=== PATIENT | female | born 1970 | race Caucasian/White ===

== ENCOUNTER 2017-09-13 11:30 | Observation (INO) ==
[2017-09-13 12:09] LABS: Basophils % 0.4 %; Eosinophils # 0.1 K/mcL (0.0-0.6); Eosinophils % 1.9 %; Hematocrit 41.4 % (35.3-44.9); Hemoglobin 13.7 g/dL (11.5-15.4); Immature Granulocytes % 0.1 % (0-4); Lymphocytes # 3.1 K/mcL (0.6-4.6); Lymphocytes % 41.8 %; Mean Corpuscular HGB Conc 33.1 g/dL (31.6-35.5); Mean Corpuscular Hemoglobin 28.9 pg (28.0-33.3); Mean Corpuscular Volume 87.3 fL (83.0-100.0); Mean Platelet Volume 9.2 fL (9.4-12.4); Monocytes # 0.5 K/mcL (0.0-1.3); Monocytes % 6.4 %; Neutrophils # 3.7 K/mcL (1.6-8.9); Platelet Count 357 K/mcL (140-400); Red Blood Count 4.74 M/mcL (3.82-4.97); Red Cell Distribution Width 12.3 % (11.5-14.5); Segmented Neutrophils % 49.4 %
[2017-09-13] MEDS ORDERED: Promethazine 12.5 MG in 0.9 % Sodium Chloride 50 ML IVPB ONE (12:21)
[2017-09-13 12:28] LABS: Troponin I < 0.03 ng/mL (< 0.04)
[2017-09-13 12:30] LABS: BUN/Creatinine Ratio 9 (6-26); Blood Urea Nitrogen 9 mg/dL (6-20); Calcium 10.2 mg/dL (8.6-10.3); Carbon Dioxide 24 mEq/L (23-29); Chloride 105 mEq/L (98-107); Glucose 109 mg/dL (70-105); Osmolality,Calculated 287 (280-300); Potassium 4.1 mEq/L (3.5-5.1); Sodium 139 mEq/L (136-145); eGFR For African Americans > 60 (> 60); eGFR For Non-African Americans 57 (> 60)
[2017-09-13] MEDS ORDERED: *HR* Promethazine 25 MG/ML VIAL IVP ONE (12:40)
[2017-09-13] MEDS ORDERED: *HR* Nalbuphine 10 MG/ML AMPUL IV ONE ×2 (12:41→15:29)
--- NOTE | 2017-09-13 12:42 | Emergency Department Note ---
Disposition Clinical Impression: Abnormal ECG Chest pain Qualifiers: Chest pain type: unspecified Qualified Code(s): R07.9 - Chest pain, unspecified Headache Qualifiers: Headache type: unspecified Headache chronicity pattern: acute headache Intractability: not intractable Qualified Code(s): R51 - Headache Disposition: Admitted As Inpatient Condition: Fair Time of Disposition: 14:03 Chest Pain HPI - General Chief Complaint: ED Chest Pain Stated Complaint: CP Time Seen by Provider: 09/13/17 12:12 Source: patient, family Mode of arrival: ambulatory Limitations: no limitations Vital Signs Reviewed: Yes Nursing Notes Reviewed: Yes - History of Present Illness HPI Narrative: Patient has had intermittent nonexertional chest discomfort over the past several days. She also feels dizzy and nauseated. She has a migraine type headache. The patient states she was seen in the emergency department for similar symptoms last week and was discharged home. She was previously diagnosed with angina but no longer takes nitroglycerin after she no longer sees Dr. Farnsworth. Patient states her MONZON is identical to her previous migraine type MONZON's. Pt complaint: chest pain Onset (ago): day(s) Duration: intermittent Onset: during rest Pain Location: substernal Severity: severe Severity scale (1-10): 9 Quality: tightness, aching Pain Radiation: none Improves with: nothing Worsens with: other (expiration) Associated symptoms: Reports: nausea, dyspnea Treatments prior to arrival chest pain: none - Related Data On Oral Contraceptives: No Home Medications Medication Instructions Recorded Confirmed Acetaminophen/Butalbital/Caffe 1 tab PO Q4HR PRN 07/21/17 09/13/17 [Fioricet] Albuterol Neb [Proventil Neb] 2.5 mg IH TID 07/21/17 09/13/17 Albuterol Sulfate [Proair Hfa] 2 puff IH Q4H PRN 07/21/17 09/13/17 Citalopram Hydrobromide 40 mg PO DAILY 07/21/17 09/13/17 [Citalopram HBr] Cyclobenzaprine [Flexeril] 10 mg PO BID 07/21/17 09/13/17 Famotidine [Heartburn Prevention] 20 mg PO HS 07/21/17 09/13/17 Gabapentin [Neurontin] 300 mg PO TID 07/21/17 09/13/17 Promethazine [Phenergan] 25 mg PO DAILY PRN 07/21/17 09/13/17 Trazodone HCl 300 mg PO HS 07/21/17 09/13/17 Zolpidem [Ambien] 10 mg PO HS 07/21/17 09/13/17 amLODIPine [Norvasc] 5 mg PO DAILY 07/21/17 09/13/17 hydrOXYzine HCl [Hydroxyzine HCl] 50 mg PO Q6H 07/21/17 09/13/17 Carbidopa/Levodopa 1 tab PO DAILY 09/13/17 09/13/17 [Carbidopa-Levodopa 25-100 Tab] Diclofenac Potassium [Cambia] 50 mg PO DAILY PRN 09/13/17 09/13/17 Lubiprostone [Amitiza] 24 mcg PO DAILY 09/13/17 09/13/17 OxyCODONE/APAP 10/325 [Percocet 1 tab PO Q6HR PRN 09/13/17 09/13/17 10/325 MG] Sorbitol Soln [Sorbitol] 30 ml PO DAILY 09/13/17 09/13/17 Allergies Allergy/AdvReac Type Severity Reaction Status Date / Time aspirin Allergy See Verified 09/13/17 14:34 Comments ketorolac [From Toradol] Allergy Anxiety Verified 09/13/17 14:34 Latex, Natural Rubber Allergy Anaphylaxis Verified 09/13/17 14:34 metoclopramide [From Reglan] Allergy Anxiety Verified 09/13/17 14:34 prochlorperazine Allergy Anxiety Verified 09/13/17 14:34 [From Compazine] propoxyphene Allergy Anxiety Verified 09/13/17 14:34 [From Darvocet-N] sumatriptan [From Imitrex] Allergy See Verified 09/13/17 14:34 Comments acetaminophen [From Vicodin] AdvReac Headache Verified 09/13/17 14:34 diphenhydramine AdvReac Anxiety Verified 09/13/17 14:34 [From Benadryl] hydrocodone [From Vicodin] AdvReac Headache Verified 09/13/17 14:34 any blood thinners AdvReac unable to Uncoded 09/13/17 14:34 have due to history All systems ED: reviewed and negative except as stated. Constitutional: Reports: as per HPI Eyes: Reports: as per HPI ENT ED: Reports: as per HPI Cardiovascular: Reports: chest pain, dyspnea on exertion Respiratory: Reports: as per HPI Gastrointestinal: Reports: nausea Genitourinary: Reports: as per HPI Musculoskeletal: Reports: as per HPI Integumentary: Reports: as per HPI Neurological: Reports: headache Psychiatric: Reports: as per HPI Endocrine: Reports: as per HPI Hematological/Lymphatic: Reports: as per HPI Allergic/Immunologic: Reports: as per HPI Chest Pain PMH - Past Medical History Medical history: Reports: aortic aneurysm, fibromyalgia, hypertension, migraine , seizures, TIA, other Surgical history: Reports: hysterectomy, other Psychiatric history: Reports: anxiety HAIR DRESSER history: Reports: no HAIR DRESSER history - Social History Smoking Status: Never smoker Alcohol use: Reports: none Drug use: Reports: none Physical Exam - General Limitations: no limitations General appearance: alert, in no apparent distress, anxious - Head Head exam: atraumatic - Eye Eye exam: Present: normal appearance, PERRL - ENT ENT exam: normal exam - Neck Neck exam: Present: normal inspection, full ROM - Chest Chest inspection: Present: normal inspection, symmetric chest wall rise - Respiratory Respiratory exam: Present: normal lung sounds bilaterally - Cardiovascular Cardiovascular exam: Present: regular rate, normal rhythm, normal heart sounds - Rectal Exam Rectal exam: Present: deferred - Extremities Exam Extremities exam: Present: normal inspection - Neurological Exam Neurological exam: Present: alert, oriented X3, CN II-XII intact - Psychiatric Psychiatric exam: Present: normal affect, normal mood, anxious - Skin Skin exam: Present: warm, dry, intact Course Course Narrative: Patient presents with intermittent chest discomfort past several days. She states she has a history of angina but does not currently take nitroglycerin. She has an allergy to aspirin. Workup including ECG and labs with attention to troponin initiated. She also states she has a migraine type headache. Even though she has a history of cerebral aneurysms she states that this headache is identical to previous. She requests Dilaudid and Phenergan as effective abortive medications. She does have a history of cerebral aneurysms but the patient's symptoms are not consistent with subarachnoid hemorrhage-no thunderclap onset, no neurologic symptoms. Subjectively identical to previous migraines - Reevaluation(s) Reevaluation #1: Patient resting coupling. Test results discussed. I will request admission to the medicine service Vital Signs Temperature 97.9 F 09/13/17 11:31 Pulse Rate 87 09/13/17 11:31 Respiratory Rate 16 09/13/17 11:31 Blood Pressure 115/76 09/13/17 11:31 O2 Sat by Pulse Oximetry 100 09/13/17 11:31 Temperature 97.9 F 09/13/17 11:31 Pulse Rate 88 09/13/17 14:33 Respiratory Rate 20 09/13/17 14:33 Blood Pressure 104/81 09/13/17 14:33 O2 Sat by Pulse Oximetry 92 09/13/17 14:33 Oxygen Delivery Oxygen Delivery Nasal Cannula Chest Pain - Medical Records Medical records reviewed: Yes I reviewed the patient's medical records. - Lab Data Lab results reviewed: Yes I reviewed the patient's lab results. Result diagrams: 09/13/17 12:01 09/13/17 12:01 Lab Results 09/13/17 09/13/17 09/13/17 Range/Units 12:01 12:01 12:52 WBC 7.5 (4.3-11.1) K/mcL RBC 4.74 (3.82-4.97) M/mcL Hgb 13.7 (11.5-15.4) g/dL Hct 41.4 (35.3-44.9) % MCV 87.3 (83.0-100.0) fL MCH 28.9 (28.0-33.3) pg MCHC 33.1 (31.6-35.5) g/dL RDW 12.3 (11.5-14.5) % Plt Count 357 (140-400) K/mcL MPV 9.2 L (9.4-12.4) fL Immature Gran % 0.1 (0-4) % Seg Neutrophils % 49.4 % Lymphocytes % 41.8 % Monocytes % 6.4 % Eosinophils % 1.9 % Basophils % 0.4 % Neutrophils # 3.7 (1.6-8.9) K/mcL Lymphocytes # 3.1 (0.6-4.6) K/mcL Monocytes # 0.5 (0.0-1.3) K/mcL Eosinophils # 0.1 (0.0-0.6) K/mcL Basophils # 0.0 (0.0-0.2) K/mcL PT 11.4 (9.4-12.1) Seconds INR 1.1 D-Dimer < 215 (0-500) ng/mLFEU Sodium 139 (136-145) mEq/L Potassium 4.1 (3.5-5.1) mEq/L Chloride 105 (98-107) mEq/L Carbon Dioxide 24 (23-29) mEq/L BUN 9 (6-20) mg/dL Creatinine 1.03 (0.60-1.20) mg/dL Est GFR ( Amer) > 60 (> 60) Est GFR (Non-Af Amer) 57 L (> 60) BUN/Creatinine Ratio 9 (6-26) Glucose 109 H (70-105) mg/dL Calculated Osmolality 287 (280-300) Calcium 10.2 (8.6-10.3) mg/dL Troponin I < 0.03 (< 0.04) ng/mL - Radiology Data Radiology results reviewed: Yes I reviewed the patient's radiology results. - EKG Data EKG attestation: Yes I reviewed and interpreted this EKG. EKG results narrative: Normal sinus rhythm rate 85 OH 141 QRS 94 QT/QTC 386/428. ST segment depression in the inferior leads. Inverted T waves in leads V1 through V6. Study compared to previous dated 09/01/17 Repeat study timed at 15:53 shows normal sinus rhythm with left ventricular hypertrophy rate 99 OH 138 QRS 91 QT/QTC 378/434. No acute ST segment elevation
[2017-09-13 13:11] LABS: INR 1.1; Prothrombin Time 11.4 Seconds (9.4-12.1)
[2017-09-13 13:16] LABS: D-Dimer < 215 ng/mLFEU (0-500)
[2017-09-13] MEDS ORDERED: Naloxone 0.4 MG/ML INJ IVP PRN (18:18)
--- NOTE | 2017-09-13 18:35 | Internal Med History&Physical ---
Date of Encounter: 09/13/17 Time of Encounter: 18:28 Internal Medicine - H&P: HPI Chief complaint: Chest pain Admitted From: Home Plans for Post Hospital Care: Home History of present illness: Ms. Villarreal is a 47 year old female with history of severe anxiety, fibromyalgia, hypertension, migraine, questionable stroke, questionable seizure on gabapentin but no seizure for last 7 year under care of neurologist, status post brain aneurysm surgery presented to ER with complaint of intermittent nonexertional left-sided chest discomfort or last several days associated with diaphoresis, nausea and lightheadedness. Yesterday it got worse rated 7 x 10 therefore decided to come to ER. She talked to her doctor about ongoing chest pain who is scheduled for a stress test OPD basis this week but ended up in [place] ER due to severity of the pain. Patient had almost same pain several years back and has been under care of energy risk management analyst Dr. Farnsworth but does not remember having any cardiac workup in her chest pain got relieved with nitroglycerin. In ER troponin negative but ST depression and T-wave inversion in inferior lateral lead. She was seen in the ER last week for the same problem and got discharge to home with the advice outpatient workup. Patient states that she was told to avoid anticoagulant due to risk of possible brain leak secondary to underlying aneurysm Patient denies fever, chills, nausea, vomiting, new change in headache but she had chronic migraine, shortness of breath, palpitation, abdominal pain, urinary or bowel complaint Past Med Surg Social Fam HX - Past Medical History Medical history: aortic aneurysm, fibromyalgia, hypertension, migraine, seizures , TIA, other Psychiatric history: anxiety - Past Surgical History Surgical History: hysterectomy, other - Social History Smoking Status: Never smoker Smokeless Tobacco Status: No Alcohol use: none Drug use: none Internal Medicine - H&P: Meds Acetaminophen/Butalbital/Caffe [Fioricet] 1 tab PO Q4HR PRN 07/21/17 [History] Albuterol Neb [Proventil Neb] 2.5 mg IH TID 07/21/17 [History] Albuterol Sulfate [Proair Hfa] 2 puff IH Q4H PRN 07/21/17 [History] Citalopram Hydrobromide [Citalopram HBr] 40 mg PO DAILY 07/21/17 [History] Cyclobenzaprine [Flexeril] 10 mg PO BID 07/21/17 [History] Famotidine [Heartburn Prevention] 20 mg PO HS 07/21/17 [History] Gabapentin [Neurontin] 300 mg PO TID 07/21/17 [History] Promethazine [Phenergan] 25 mg PO DAILY PRN 07/21/17 [History] Trazodone HCl 300 mg PO HS 07/21/17 [History] Zolpidem [Ambien] 10 mg PO HS 07/21/17 [History] amLODIPine [Norvasc] 5 mg PO DAILY 07/21/17 [History] hydrOXYzine HCl [Hydroxyzine HCl] 50 mg PO Q6H 07/21/17 [History] Carbidopa/Levodopa [Carbidopa-Levodopa 25-100 Tab] 1 tab PO DAILY 09/13/17 [ History] Diclofenac Potassium [Cambia] 50 mg PO DAILY PRN 09/13/17 [History] Lubiprostone [Amitiza] 24 mcg PO DAILY 09/13/17 [History] OxyCODONE/APAP 10/325 [Percocet 10/325 MG] 1 tab PO Q6HR PRN 09/13/17 [History] Sorbitol Soln [Sorbitol] 30 ml PO DAILY 09/13/17 [History] 3 Allergy/AdvReac Type Severity Reaction Status Date / Time aspirin Allergy See Verified 09/13/17 14:34 Comments ketorolac [From Toradol] Allergy Anxiety Verified 09/13/17 14:34 Latex, Natural Rubber Allergy Anaphylaxis Verified 09/13/17 14:34 metoclopramide [From Reglan] Allergy Anxiety Verified 09/13/17 14:34 prochlorperazine Allergy Anxiety Verified 09/13/17 14:34 [From Compazine] propoxyphene Allergy Anxiety Verified 09/13/17 14:34 [From Darvocet-N] sumatriptan [From Imitrex] Allergy See Verified 09/13/17 14:34 Comments acetaminophen [From Vicodin] AdvReac Headache Verified 09/13/17 14:34 diphenhydramine AdvReac Anxiety Verified 09/13/17 14:34 [From Benadryl] hydrocodone [From Vicodin] AdvReac Headache Verified 09/13/17 14:34 any blood thinners AdvReac unable to Uncoded 09/13/17 14:34 have due to history All Systems PM: as documented above in the HPI. - Constitutional Vitals: Temp Pulse Resp BP Pulse Ox 98.4 F 89 14 121/82 93 09/13/17 16:11 09/13/17 16:11 09/13/17 16:11 09/13/17 16:11 09/13/17 16:11 Exam: General appearance: No acute distress, A&O X 3 Head exam: Atraumatic Eye exam: EOMI, PERRLA ENT exam: Moist oral mucosa Neck nontender, supple Respiratory exam: Clear to auscultation bilaterally Cardiovascular exam: Regular rate and rhythm, no systolic murmur Abdominal exam: Soft, nontender, nondistended, positive bowel sounds Extremities exam: No calf tenderness, no pedal edema Present: Skin-no rash, warm, dry, intact Neurological exam: Alert, awake, oriented 3, CN II-XII intact, no focal deficits. No facial droop. Normal speech. Normal gait. Motor 5 x 5 in all 4 extremities Internal Med - H&P Results - Labs CBC & Chem 7: 09/13/17 12:01 09/13/17 12:01 - Assessment and plan (1) Chest pain Current Visit: Yes Status: Acute Assessment and plan: Rule out ACS. Intermittent presentation. Better chest pain. Telemetry bed serial troponin. Echocardiogram and a stress tests after discussing with energy risk management analyst. Will avoid anticoagulant at this time based on history of brain aneurysm and possible risk of leak. Fasting lipid profile ordered, statin. Qualifiers: Chest pain type: unspecified Qualified Code(s): R07.9 - Chest pain, unspecified (2) Hypertension Current Visit: Yes Status: Chronic Assessment and plan: Close monitoring. Continue home medicine Qualifiers: Hypertension type: essential hypertension Qualified Code(s): I10 - Essential (primary) hypertension (3) Chronic migraine Current Visit: Yes Status: Chronic Assessment and plan: Stable. Continue home medicine. Patient follow neurologist and has appointment next week on OPD basis (4) Anxiety Current Visit: Yes Status: Chronic Assessment and plan: Stable. Continue home medicine (5) DVT prophylaxis Current Visit: Yes Status: Acute Assessment and plan: SCDs. - Time Spent With Patient Total time spent is greater than 50% in coordination of care (as documented) at patient's floor/unit and/or counseling patient: 25 - 35 minutes
[2017-09-13] MEDS: hydrOXYzine pamoate 25 MG CAPSULE PO SCH (18:40)
[2017-09-13] MEDS: *HR* OxyCODONE/APAP 10/325 TABLET PO PRN (18:45)
[2017-09-13] MEDS ORDERED: Nitroglycerin 0.4 MG TAB.SUBL SL PRN (18:49)
[2017-09-13] MEDS: Albuterol 2.5 MG/3 ML NEBULIZER IH SCH (21:24)
[2017-09-13] MEDS: traZODone 50 MG TABLET PO SCH (21:57)
[2017-09-13] MEDS: Famotidine 20 MG TABLET PO SCH (21:57)
[2017-09-13] MEDS: Gabapentin 300 MG CAPSULE PO SCH (21:57)
[2017-09-14] MEDS: *HR* OxyCODONE/APAP 10/325 TABLET PO PRN ×4 (00:35→20:39)
[2017-09-14] MEDS: hydrOXYzine pamoate 25 MG CAPSULE PO SCH ×4 (00:35→20:38)
[2017-09-14 02:10] LABS: Basophils % 0.3 %; Eosinophils # 0.2 K/mcL (0.0-0.6); Eosinophils % 2.4 %; Hematocrit 38.2 % (35.3-44.9); Hemoglobin 12.3 g/dL (11.5-15.4); Immature Granulocytes % 0.3 % (0-4); Lymphocytes # 2.7 K/mcL (0.6-4.6); Lymphocytes % 42.4 %; Mean Corpuscular HGB Conc 32.2 g/dL (31.6-35.5); Mean Corpuscular Hemoglobin 29.1 pg (28.0-33.3); Mean Corpuscular Volume 90.3 fL (83.0-100.0); Mean Platelet Volume 10.4 fL (9.4-12.4); Monocytes # 0.6 K/mcL (0.0-1.3); Neutrophils # 2.8 K/mcL (1.6-8.9); Platelet Count 268 K/mcL (140-400); Red Blood Count 4.23 M/mcL (3.82-4.97); Red Cell Distribution Width 12.3 % (11.5-14.5); Segmented Neutrophils % 44.6 %
[2017-09-14 02:34] LABS: BUN/Creatinine Ratio 14 (6-26); Blood Urea Nitrogen 12 mg/dL (6-20); Calcium 9.2 mg/dL (8.6-10.3); Carbon Dioxide 26 mEq/L (23-29); Chloride 105 mEq/L (98-107); Cholesterol 252 mg/dL (< 200); Glucose 109 mg/dL (70-105); HDL Cholesterol 50 mg/dL (40-59); LDL Cholesterol,Calculated 183 mg/dL (0-99); Osmolality,Calculated 288 (280-300); Potassium 3.6 mEq/L (3.5-5.1); Sodium 139 mEq/L (136-145); Triglycerides 94 mg/dL (< 150); eGFR For African Americans > 60 (> 60); eGFR For Non-African Americans > 60 (> 60)
[2017-09-14] MEDS ORDERED: Regadenoson 0.4 MG/5 ML SYRINGE IVP ONE (05:29)
[2017-09-14] MEDS ORDERED: *HR* Nalbuphine 20 MG/ML AMPUL IVP ONE (09:42)
[2017-09-14] MEDS ORDERED: *HR* Promethazine 25 MG/ML VIAL IVP ONE (09:43)
[2017-09-14] MEDS: Albuterol 2.5 MG/3 ML NEBULIZER IH SCH ×3 (10:32→21:10)
[2017-09-14] MEDS ORDERED: *HR* Nalbuphine 10 MG/ML AMPUL IVP ONE (11:15)
[2017-09-14] MEDS: Gabapentin 300 MG CAPSULE PO SCH ×3 (11:17→20:38)
[2017-09-14] MEDS: Carbidopa/Levodopa 25/100 TABLET PO SCH (11:17)
[2017-09-14] MEDS: (Lubiprostone [Amitiza] 24 MCG) PO SCH (11:18)
[2017-09-14] MEDS: amLODIPine 5 MG TABLET PO SCH (11:18)
--- NOTE | 2017-09-14 12:22 | Internal Med Progress Note ---
Date of Encounter: 09/14/17 Time of Encounter: 12:18 - Assessment and plan (1) Chest pain Current Visit: Yes Status: Acute Assessment and plan: She presented with intermittent left-sided chest pain. ACS rule out protocol and admitted. No events on telemetry noted. Echocardiogram unremarkable, with preserved LVEF. Stress test completed today found to be negative for ischemia. Troponins negative 3. However, ECG did note some possible T-wave inversions in inferior leads. Reporting chest pain now 2/10. Continue to monitor closely. Continue cardiac medications. Patient not a good candidate for anticoagulation due to history of brain aneurysm and possible risk of bleeding. Hemodynamically stable. Cardiology following Qualifiers: Chest pain type: unspecified Qualified Code(s): R07.9 - Chest pain, unspecified (2) Chronic migraine Current Visit: Yes Status: Chronic Assessment and plan: Having active migraine now, pain rated 10/10. Reporting oxycodone is not helping. Home medications being continued and is also not helping. Patient noted that she follow neurologist and has appointment next week on an outpatient basis. She has been encouraged to maintain this appointment. CT angiogram of the neck and angiography of brain, stable compared to previous exams, no flow limiting stenosis noted. Due to active migraine with pain 10/10, phonophobia and photophobia I will give the patient a one-time dose of Nubain and Phenergan Continue to closely monitor, monitor for changes in neurologic status (3) Hypertension Current Visit: Yes Status: Chronic Assessment and plan: History of hypertension, blood pressures remained stable throughout the stay thus far, Close monitoring. Continue home medicine Qualifiers: Hypertension type: essential hypertension Qualified Code(s): I10 - Essential (primary) hypertension (4) Anxiety Current Visit: Yes Status: Chronic Assessment and plan: Stable at this time. Continue home medicine (5) DVT prophylaxis Current Visit: Yes Status: Acute Assessment and plan: Continue SCDs and early ambulation - Time Spent With Patient Total time spent is greater than 50% in coordination of care (as documented) at patient's floor/unit and/or counseling patient: 25 - 35 minutes - Subjective Interval history: Patient presented with intermittent nonexertional left-sided chest discomfort over the last several days with diaphoresis nausea and lightheadedness. Additionally was found to a migraine headache. Patient reports that chest pain has significantly improved since admission, now 2/10. Patient underwent nuclear stress this morning, chest pain at start of stress test 06/11 and remained 2/10 throughout. Nuclear stress negative for ischemia. She is continuing to endorse migraine headache and does have a history of this. Takes chronic migraine medication at home and reports that when there very severe she returns to the ED for IV pain medication. - Constitutional Vitals: Temp Pulse Resp BP Pulse Ox 97.5 F L 77 14 120/77 95 09/14/17 11:21 09/14/17 11:21 09/14/17 11:21 09/14/17 11:21 09/14/17 11:21 General appearance: Present: cooperative, A&O X 3, no acute distress, answers questions appropriately - Head Head exam: Present: atraumatic, normocephalic - Eye Eye exam: Present: PERRL, conjuntiva pink, sclera anicteric Pupils: Present: PERRL - Neck Neck exam general surgery: Present: supple, trachea midline. Absent: lymphadenopathy - Respiratory Respiratory exam: Present: CTAB. Absent: accessory muscle use, rales, rhonchi, wheezes - Cardiovascular Cardiovascular exam: Present: RRR, +S1, +S2. Absent: diastolic murmur, gallop, rubs, systolic murmur - GI/Abdominal GI/Abdominal exam: Present: normal bowel sounds, soft, no peritoneal signs. Absent: distended, tenderness - Extremities Exam Extremities exam: Present: warm, radial pulses palpable and symmetrical. Absent : calf tenderness, cyanotic, pedal edema - Neurological Exam Neurological exam: Present: CN II-XII intact, oriented X3, no focal deficits. Absent: pronater drift, facial droop, speech deficit - Skin Skin exam: Present: dry, intact Internal Medicine: Result - Labs CBC & Chem 7: 09/14/17 01:01 09/14/17 01:01 Labs: Short CBC 09/14/17 Range/Units 01:01 WBC 6.3 (4.3-11.1) K/mcL Hgb 12.3 (11.5-15.4) g/dL Hct 38.2 (35.3-44.9) % Plt Count 268 (140-400) K/mcL Neutrophils # 2.8 (1.6-8.9) K/mcL BMP 09/14/17 01:01 Sodium 139 Potassium 3.6 Chloride 105 Carbon Dioxide 26 BUN 12 Creatinine 0.87 Glucose 109 H Calcium 9.2 Cardiac Enzymes 09/13/17 09/14/17 09/14/17 Range/Units 18:33 01:01 06:49 Troponin I < 0.03 < 0.03 < 0.03 (< 0.04) ng/mL - ABG Interpretation ABG results: PT/INR, D-dimer PT 11.4 Seconds (9.4-12.1) 09/13/17 12:52 D-Dimer < 215 ng/mLFEU (0-500) 09/13/17 12:52 - Impressions Impressions Echocardiogram 09/14/17 18:27 Impressions: LVEF 65%. Indeterminate diastolic function. Normal right ventricular structure and function. Mild mitral regurgitation. No pulmonary hypertension. Left Ventricular Wall Motion: Rest Echo Findings All wall segments showed normal motion. Findings: Study Quality * Technically adequate exam. ECG Findings * Normal sinus rhythm. Left Ventricle * LVEF 65%. * Normal LV chamber size, wall thickness and function. * Indeterminate diastolic function. Right Ventricle * Normal right ventricular structure and function. Left Atrium * Normal left atrial size. Right Atrium * Normal right atrial size. Mitral Valve * Normal mitral valve structure. * No mitral stenosis. * Mild mitral regurgitation. Aortic Valve * No aortic regurgitation. * Trileaflet aortic valve. * No aortic stenosis. Tricuspid Valve * Tricuspid valve not well visualized. * Trace tricuspid regurgitation. * Estimated RA pressure is 3 mmHg. * Estimated RVSP is 22 mmHg. * No pulmonary hypertension. Pulmonic Valve * Pulmonic valve is not well visualized. * No pulmonic stenosis. * No pulmonic regurgitation. Pulmonary Artery * Pulmonary artery not well visualized. Aorta * Normally sized aortic root. Pericardium * There is no pericardial effusion present. Interatrial Septum * No evidence of PFO by color Doppler. IVC * Normal IVC dimensions and inspiratory collapse. Consult Discharge Plan - Plan Referrals: Baltazar Craig DO [Primary Care Provider] - 10/11/17 1:30 pm Dania Alamo [Partnered Physician] - 10/05/17 3:30 pm
[2017-09-14] MEDS: SORBITOL PO SCH (14:24)
--- NOTE | 2017-09-14 16:16 | Electrocardiograph Report ---
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
--- NOTE | 2017-09-14 16:26 | Electrocardiograph Report ---
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
[2017-09-14] MEDS: Acetaminophen/Butalbital/CaffeineTABLET PO PRN (16:51)
[2017-09-14] MEDS: Famotidine 20 MG TABLET PO SCH (20:38)
[2017-09-14] MEDS: traZODone 50 MG TABLET PO SCH (20:39)
[2017-09-15] MEDS: hydrOXYzine pamoate 25 MG CAPSULE PO SCH ×4 (01:30→17:40)
[2017-09-15] MEDS: *HR* OxyCODONE/APAP 10/325 TABLET PO PRN ×3 (03:17→19:35)
[2017-09-15 04:31] LABS: Basophils % 0.3 %; Eosinophils # 0.2 K/mcL (0.0-0.6); Eosinophils % 2.8 %; Hematocrit 34.3 % (35.3-44.9); Hemoglobin 10.9 g/dL (11.5-15.4); Immature Granulocytes % 0.3 % (0-4); Lymphocytes # 2.3 K/mcL (0.6-4.6); Lymphocytes % 40.4 %; Mean Corpuscular HGB Conc 31.8 g/dL (31.6-35.5); Mean Corpuscular Hemoglobin 28.9 pg (28.0-33.3); Mean Platelet Volume 9.5 fL (9.4-12.4); Monocytes # 0.5 K/mcL (0.0-1.3); Monocytes % 8.8 %; Neutrophils # 2.7 K/mcL (1.6-8.9); Platelet Count 271 K/mcL (140-400); Red Blood Count 3.77 M/mcL (3.82-4.97); Red Cell Distribution Width 12.2 % (11.5-14.5); Segmented Neutrophils % 47.4 %
[2017-09-15 04:43] LABS: BUN/Creatinine Ratio 12 (6-26); Blood Urea Nitrogen 10 mg/dL (6-20); Calcium 9.1 mg/dL (8.6-10.3); Carbon Dioxide 29 mEq/L (23-29); Chloride 105 mEq/L (98-107); Glucose 100 mg/dL (70-105); Osmolality,Calculated 287 (280-300); Potassium 3.6 mEq/L (3.5-5.1); Sodium 139 mEq/L (136-145); eGFR For African Americans > 60 (> 60); eGFR For Non-African Americans > 60 (> 60)
[2017-09-15] MEDS: Albuterol 2.5 MG/3 ML NEBULIZER IH SCH ×3 (07:50→20:15)
[2017-09-15] MEDS: Acetaminophen/Butalbital/CaffeineTABLET PO PRN (08:33)
[2017-09-15] MEDS: SORBITOL PO SCH (08:34)
[2017-09-15] MEDS: amLODIPine 5 MG TABLET PO SCH (08:34)
[2017-09-15] MEDS: Carbidopa/Levodopa 25/100 TABLET PO SCH (08:34)
[2017-09-15] MEDS: Gabapentin 300 MG CAPSULE PO SCH ×3 (08:34→21:04)
[2017-09-15] MEDS: (Lubiprostone [Amitiza] 24 MCG) PO SCH (08:34)
--- NOTE | 2017-09-15 12:32 | Internal Med Progress Note ---
Date of Encounter: 09/15/17 Time of Encounter: 09:15 - Assessment and plan (1) Chest pain Current Visit: Yes Status: Acute Assessment and plan: She presented with intermittent left-sided chest pain. ACS rule out protocol and admitted. Continues have no events on telemetry, Echocardiogram unremarkable, with preserved LVEF. Stress test completed today found to be negative for ischemia however, she is continuing to have chest pain. Troponins negative 3. However, ECG did note some possible T-wave changes and anterior lateral leads. Continue to monitor closely. Continue cardiac medications. Patient not a good candidate for anticoagulation due to history of brain aneurysm and possible risk of slow bleeding per the patient. The patient reports that she was informed not to take anticoagulation or antiplatelets because there is a third aneurysm was unable to be coiled or clipped. She was told there is a risk for "slow brain leak ". Cardiology following; recommendations if patient at risk for brain bleed due to prior aneurysm with coiling and clipping that she would not be a candidate for LHC however, the patient is low risk a diagnostic LHC would be beneficial due to ongoing chest pain Obtain old medical records from the [facility] and the [facility] in regards to aneurysm, clipping and coiling procedure as well as most recent imaging. Neurology consulted, will see in consultation Qualifiers: Chest pain type: unspecified Qualified Code(s): R07.9 - Chest pain, unspecified (2) Chronic migraine Current Visit: Yes Status: Chronic Assessment and plan: History of chronic migraines, migraines coming and going intermittently throughout the day. Continue home migraine medication, patient refusing to take abortive migraine therapy and/or migraine cocktail. Patient noted that she follow neurologist and has appointment next week on an outpatient basis. She has been encouraged to maintain this appointment. CT angiogram of the neck and angiography of brain, stable compared to previous exams, no flow limiting stenosis noted. Continue to closely monitor, monitor for changes in neurologic status (3) Hypertension Current Visit: Yes Status: Chronic Assessment and plan: BP stable, Close monitoring. Continue home medicine Qualifiers: Hypertension type: essential hypertension Qualified Code(s): I10 - Essential (primary) hypertension (4) Anxiety Current Visit: Yes Status: Chronic Assessment and plan: Continues to appear anxious, resume anxiolytics (5) DVT prophylaxis Current Visit: Yes Status: Acute Assessment and plan: EPCD's - Time Spent With Patient Total time spent is greater than 50% in coordination of care (as documented) at patient's floor/unit and/or counseling patient: Greater than 35 minutes - Subjective Interval history: Patient presented with intermittent nonexertional left-sided chest discomfort over the last several days with diaphoresis nausea and lightheadedness. Additionally was found to a migraine headache. Patient reports that chest pain has significantly improved since admission, now 06/11. Patient underwent nuclear stress this morning, chest pain at start of stress test 06/11 and remained 2/10 throughout. Nuclear stress negative for ischemia. She is continuing to endorse migraine headache and does have a history of this. Takes chronic migraine medication at home and reports that when there very severe she returns to the ED for IV pain medication. - Constitutional Vitals: Temp Pulse Resp BP Pulse Ox 98.6 F 79 14 120/79 95 09/15/17 11:26 09/15/17 11:26 09/15/17 11:26 09/15/17 11:26 09/15/17 11:26 General appearance: Present: cooperative, A&O X 3, no acute distress, answers questions appropriately - Head Head exam: Present: atraumatic, normocephalic - Eye Eye exam: Present: PERRL, conjuntiva pink, sclera anicteric Pupils: Present: PERRL - Neck Neck exam general surgery: Present: supple, trachea midline. Absent: lymphadenopathy - Respiratory Respiratory exam: Present: CTAB. Absent: accessory muscle use, rales, rhonchi, wheezes - Cardiovascular Cardiovascular exam: Present: RRR, +S1, +S2. Absent: diastolic murmur, gallop, rubs, systolic murmur - GI/Abdominal GI/Abdominal exam: Present: normal bowel sounds, soft, no peritoneal signs. Absent: distended, tenderness - Extremities Exam Extremities exam: Present: warm, radial pulses palpable and symmetrical. Absent : calf tenderness, cyanotic, pedal edema - Neurological Exam Neurological exam: Present: CN II-XII intact, oriented X3, no focal deficits. Absent: pronater drift, facial droop, speech deficit - Skin Skin exam: Present: dry, intact Internal Medicine: Result - Labs CBC & Chem 7: 09/15/17 03:52 09/15/17 03:52 Labs: Short CBC 09/15/17 Range/Units 03:52 WBC 5.8 (4.3-11.1) K/mcL Hgb 10.9 L (11.5-15.4) g/dL Hct 34.3 L (35.3-44.9) % Plt Count 271 (140-400) K/mcL Neutrophils # 2.7 (1.6-8.9) K/mcL BMP 09/15/17 03:52 Sodium 139 Potassium 3.6 Chloride 105 Carbon Dioxide 29 BUN 10 Creatinine 0.81 Glucose 100 Calcium 9.1 - ABG Interpretation ABG results: PT/INR, D-dimer PT 11.4 Seconds (9.4-12.1) 09/13/17 12:52 D-Dimer < 215 ng/mLFEU (0-500) 09/13/17 12:52 - VTE Documentation of Mechanical Device: Intermittent pneumatic compression device Consult Discharge Plan - Plan Referrals: Baltazar Craig DO [Primary Care Provider] - 10/11/17 1:30 pm Dania Alamo [Partnered Physician] - 10/05/17 3:30 pm
--- NOTE | 2017-09-15 15:48 | Cardiology Consult Note ---
Date of Encounter: 09/15/17 Time of Encounter: 15:39 Assessment and Plan (1) Chest pain Current Visit: Yes Status: Acute Ongoing despite negative stress test with concerning anterolateral EKG changes. If patient is truly at risk for brain bleed no LHC, if she is a low risk a diagnostic LHC is reasonable Discussion w patient/family: The assessment and plan as outlined above was discussed with the patient and/or family members who expressed understanding and agreement. All questions were answered. Thank you for involving us in the care of your patient. Please call with any questions. History of Present Illness Consult date: 09/15/17 Consult reason: Chest Pain Chief complaint: Chest Pain History of present illness: Ms. Villarreal is a 47 year old female with hx of migraines, fibromyalgia, brain aneurysms who presents with atypical chest pain found to have an unremarkable stress test. CP continue now 2/10 improved from admission. CE's negative despite prolonged episodes of chest pain. EKG showa anterolateral ST changes suggestive of ischemia otherwise unremarkable. D/W Dr. Quiroga inregards to brain aneurysms and there is concern of a possible slow bleed. With her atypical CP, preserved EF on ECHO and negative stress test I would not pursue any invasive cardiac testing at this time. Ideally the EKG changes and ongoing chest pain may result in a LHC but in the setting of a bleeding brain aneursym a LHC does not seem reasonable. Will obtain a neurology consult for further clarification. Past Med Surg Social Fam HX - Past Medical History Medical history: aortic aneurysm, fibromyalgia, hypertension, migraine, seizures , TIA, other Psychiatric history: anxiety - Past Surgical History Surgical History: hysterectomy, other - Social History Smoking Status: Never smoker Smokeless Tobacco Status: No Alcohol use: none Drug use: none Medications and Allergies Acetaminophen/Butalbital/Caffe [Fioricet] 1 tab PO Q4HR PRN 07/21/17 [History] Albuterol Neb [Proventil Neb] 2.5 mg IH TID 07/21/17 [History] Albuterol Sulfate [Proair Hfa] 2 puff IH Q4H PRN 07/21/17 [History] Citalopram Hydrobromide [Citalopram HBr] 40 mg PO DAILY 07/21/17 [History] Cyclobenzaprine [Flexeril] 10 mg PO BID 07/21/17 [History] Famotidine [Heartburn Prevention] 20 mg PO HS 07/21/17 [History] Gabapentin [Neurontin] 300 mg PO TID 07/21/17 [History] Promethazine [Phenergan] 25 mg PO DAILY PRN 07/21/17 [History] Trazodone HCl 300 mg PO HS 07/21/17 [History] Zolpidem [Ambien] 10 mg PO HS 07/21/17 [History] amLODIPine [Norvasc] 5 mg PO DAILY 07/21/17 [History] hydrOXYzine HCl [Hydroxyzine HCl] 50 mg PO Q6H 07/21/17 [History] Carbidopa/Levodopa [Carbidopa-Levodopa 25-100 Tab] 1 tab PO DAILY 09/13/17 [ History] Diclofenac Potassium [Cambia] 50 mg PO DAILY PRN 09/13/17 [History] Lubiprostone [Amitiza] 24 mcg PO DAILY 09/13/17 [History] OxyCODONE/APAP 10/325 [Percocet 10/325 MG] 1 tab PO Q6HR PRN 09/13/17 [History] Sorbitol Soln [Sorbitol] 30 ml PO DAILY 09/13/17 [History] 3 Allergy/AdvReac Type Severity Reaction Status Date / Time aspirin Allergy See Verified 09/13/17 14:34 Comments ketorolac [From Toradol] Allergy Anxiety Verified 09/13/17 14:34 Latex, Natural Rubber Allergy Anaphylaxis Verified 09/13/17 14:34 metoclopramide [From Reglan] Allergy Anxiety Verified 09/13/17 14:34 prochlorperazine Allergy Anxiety Verified 09/13/17 14:34 [From Compazine] propoxyphene Allergy Anxiety Verified 09/13/17 14:34 [From Darvocet-N] sumatriptan [From Imitrex] Allergy See Verified 09/13/17 14:34 Comments acetaminophen [From Vicodin] AdvReac Headache Verified 09/13/17 14:34 diphenhydramine AdvReac Anxiety Verified 09/13/17 14:34 [From Benadryl] hydrocodone [From Vicodin] AdvReac Headache Verified 09/13/17 14:34 any blood thinners AdvReac unable to Uncoded 09/13/17 14:34 have due to history All Systems Review: The remainder of the systems were reviewed and are negative Physical Examination Vital Signs, Last 4 Hours Temp Pulse Resp BP Pulse Ox 09/15/17 15:33 98.8 F 78 14 104/58 95 General: Conversant, No Apparent Distress HEENT: Atraumatic, Normocephaly, Mucus Membranes Moist Neck: No JVD, Normal carotid pulses Cardiac: Reg Rate and Rhythm, Normal S1 and S2, No Murmur Lungs: Normal Breath Sounds, No Wheeze, Rales, Rhonchi Neuro: Alert and responsive, No focal deficits noted Abdomen: Soft, Non-Tender Skin: No rashes noted on visualized skin Musculoskeletal: No Chest Wall Tenderness Extremities: No Clubbing, No Cyanosis, No Edema, Normal Pulses Results 09/15/17 03:52 09/15/17 03:52 Lab Results 09/15/17 09/15/17 03:52 03:52 WBC 5.8 Hgb 10.9 L Hct 34.3 L Plt Count 271 Sodium 139 Potassium 3.6 Chloride 105 Carbon Dioxide 29 BUN 10 Creatinine 0.81 Glucose 100 Calcium 9.1 Consult Discharge Plan - Plan Referrals: Baltazar Craig DO [Primary Care Provider] - 10/11/17 1:30 pm Dania Alamo [Partnered Physician] - 10/05/17 3:30 pm
[2017-09-15] MEDS: Famotidine 20 MG TABLET PO SCH (21:04)
[2017-09-15] MEDS: traZODone 50 MG TABLET PO SCH (21:04)
[2017-09-16] MEDS: hydrOXYzine pamoate 25 MG CAPSULE PO SCH ×4 (00:27→16:42)
[2017-09-16] MEDS ORDERED: Isovue-370 500 ML INFUS..BTL IV ONE (07:27)
[2017-09-16] MEDS: SORBITOL PO SCH (08:06)
[2017-09-16] MEDS: Carbidopa/Levodopa 25/100 TABLET PO SCH (08:07)
[2017-09-16] MEDS: amLODIPine 5 MG TABLET PO SCH (08:07)
[2017-09-16] MEDS: Gabapentin 300 MG CAPSULE PO SCH ×3 (08:07→21:02)
--- NOTE | 2017-09-16 08:07 | Neurology - Consult Note ---
Date of Encounter: 09/16/17 Time of Encounter: 08:00 Assessment and Plan (1) Chronic migraine Current Visit: Yes Status: Chronic This patient has a long history of chronic intractable headaches subsquent to prior clipping and coiling of cerebral aneurysms. Pt. mentions a 3rd inoperable aneurysm, however this lesion is not present on recent CTA studies. The most recent CTA remains stable and unchanged compared to a study completed in 2017. Although she continues to have chronic migraines she is neurologically stable. Neither prior hx of or, presence of cerebral aneurysm present a contraindication to to antithrombotic therapy, or heart catherization. However ordinary stoke risks for catheterization would apply. Appropriate risk benefit analysis is indicated. History of Present Illness HPI: The chart was reviewed, the patient was seen and examined. Brooklyn Villarreal is a very pleasant 47-year-old woman who is known to me due to a prior history of intractable migraine headaches. She has also had intracranial aneurysms one of which was coiled, the other was clipped. She Has had numerous repeat CTA's of the brain all of which have remained stable since 2009. She was admitted due to atypical chest pain. Cardiology wishes to do a heart cath but is concerned about the hx of the aneurysms, and the risks associated. She has chronic migraines for which she sees a headache specialist in [place]. She is currently AAOx3. She was recently seen in our for sx of chest pain and headache on 09/01/17. CTA completed at that time was stable in comparison to a study completed in January of 2017. Past Med Surg Social Fam HX - Past Medical History Medical history: aortic aneurysm, fibromyalgia, hypertension, migraine, seizures , TIA, other Psychiatric history: anxiety - Past Surgical History Surgical History: hysterectomy, other - Social History Smoking Status: Never smoker Smokeless Tobacco Status: No Alcohol use: none Drug use: none Medications and Allergies Acetaminophen/Butalbital/Caffe [Fioricet] 1 tab PO Q4HR PRN 07/21/17 [History] Albuterol Neb [Proventil Neb] 2.5 mg IH TID 07/21/17 [History] Albuterol Sulfate [Proair Hfa] 2 puff IH Q4H PRN 07/21/17 [History] Citalopram Hydrobromide [Citalopram HBr] 40 mg PO DAILY 07/21/17 [History] Cyclobenzaprine [Flexeril] 10 mg PO BID 07/21/17 [History] Famotidine [Heartburn Prevention] 20 mg PO HS 07/21/17 [History] Gabapentin [Neurontin] 300 mg PO TID 07/21/17 [History] Promethazine [Phenergan] 25 mg PO DAILY PRN 07/21/17 [History] Trazodone HCl 300 mg PO HS 07/21/17 [History] Zolpidem [Ambien] 10 mg PO HS 07/21/17 [History] amLODIPine [Norvasc] 5 mg PO DAILY 07/21/17 [History] hydrOXYzine HCl [Hydroxyzine HCl] 50 mg PO Q6H 07/21/17 [History] Carbidopa/Levodopa [Carbidopa-Levodopa 25-100 Tab] 1 tab PO DAILY 09/13/17 [ History] Diclofenac Potassium [Cambia] 50 mg PO DAILY PRN 09/13/17 [History] Lubiprostone [Amitiza] 24 mcg PO DAILY 09/13/17 [History] OxyCODONE/APAP 10/325 [Percocet 10/325 MG] 1 tab PO Q6HR PRN 09/13/17 [History] Sorbitol Soln [Sorbitol] 30 ml PO DAILY 09/13/17 [History] 3 Allergy/AdvReac Type Severity Reaction Status Date / Time aspirin Allergy See Verified 09/13/17 14:34 Comments ketorolac [From Toradol] Allergy Anxiety Verified 09/13/17 14:34 Latex, Natural Rubber Allergy Anaphylaxis Verified 09/13/17 14:34 metoclopramide [From Reglan] Allergy Anxiety Verified 09/13/17 14:34 prochlorperazine Allergy Anxiety Verified 09/13/17 14:34 [From Compazine] propoxyphene Allergy Anxiety Verified 09/13/17 14:34 [From Darvocet-N] sumatriptan [From Imitrex] Allergy See Verified 09/13/17 14:34 Comments acetaminophen [From Vicodin] AdvReac Headache Verified 09/13/17 14:34 diphenhydramine AdvReac Anxiety Verified 09/13/17 14:34 [From Benadryl] hydrocodone [From Vicodin] AdvReac Headache Verified 09/13/17 14:34 any blood thinners AdvReac unable to Uncoded 09/13/17 14:34 have due to history All Systems: The remainder of the systems were reviewed and are negative Review of Systems: The balance of the systems review is negative. Physical Examination - Vital Signs Vital Signs: Initial Vital Signs Temp Pulse Resp BP Pulse Ox 97.9 F 87 16 115/76 100 09/13/17 11:31 09/13/17 11:31 09/13/17 11:31 09/13/17 11:31 09/13/17 11:31 - Neurologic Detailed motor examination: full strength in all major muscle groups Motor examination - right side: 09/03: deltoids, biceps, triceps, wrist flexion, wrist extension, printing supervisor, hip flexors, tibialis Anterior, quadriceps, toe extension (EHL), plantarflexion Motor examination - left side: 09/03: deltoids, biceps, triceps, wrist flexion, wrist extension, hip flexors, printing supervisor, quadriceps, tibialis Anterior, toe extension (EHL), plantarflexion Mental Status Examination: awake, alert, oriented to person, oriented to place, oriented to time, follows commands appropriately, answers questions appropriately, no agnosia, no aphasia, no aproxia Cranial nerve examination: PERRL, EOMI, visual ocasio intact, corneal reflexes brisk symmetrically, sensory to face intact, mastication intact, no facial asymmetry is present, no dysarthria, hearing is intact symmetrically, soft palate elevates bilaterally upon phonation, gag reflex intact, flexes SCM and trapezius muscles symmetrically with full power, tongue protrudes midline, no atrophy or facial fasiculations present Cerebellar examination: no dysmetria, performs finger to nose and heel to gomez symmetrically without ataxia, no gait ataxia, no truncal ataxia, no difficulty with rapid alternating movements Results - Laboratory Findings CBC and BMP: 09/15/17 03:52 09/15/17 03:52 Abnormal lab findings: Abnormal lab results RBC 3.77 M/mcL (3.82-4.97) L 09/15/17 03:52 Hgb 10.9 g/dL (11.5-15.4) L 09/15/17 03:52 Hct 34.3 % (35.3-44.9) L 09/15/17 03:52 Cholesterol 252 mg/dL (< 200) H 09/14/17 01:01 LDL Cholesterol, Calc 183 mg/dL (0-99) H 09/14/17 01:01 Cholesterol/HDL Ratio 5.0 (0-4.9) H 09/14/17 01:01 Consult Discharge Plan - Plan Referrals: Baltazar Craig DO [Primary Care Provider] - 10/11/17 1:30 pm Dania Alamo [Partnered Physician] - 10/05/17 3:30 pm
[2017-09-16] MEDS: Albuterol 2.5 MG/3 ML NEBULIZER IH SCH ×3 (08:26→20:18)
[2017-09-16] MEDS: (Lubiprostone [Amitiza] 24 MCG) PO SCH (08:29)
[2017-09-16] MEDS: *HR* OxyCODONE/APAP 10/325 TABLET PO PRN (12:42)
--- NOTE | 2017-09-16 12:48 | Event Note ---
Date of Encounter: 09/16/17 Time of Encounter: 12:47 - Cardiology Event Note 47-year-old female with history of brain aneurysms status post clipping in the past presents with chest pain ongoing unrelenting with biphasic T waves anteriorly in January 2017 currently with flipped T waves during this presentation. In the setting of her previous brain aneurysms we requested dual antiplatelet therapy long-term clearance from neurology and the primary team. Both the primary team and Dr. Razo from neurology has cleared patient for long- term dual antiplatelet therapy. Risks benefits and alternatives of the left heart catheter were discussed with the patient and she agrees to proceed
[2017-09-16] MEDS: Nitroglycerin 0.4 MG TAB.SUBL SL PRN ×2 (13:25→13:58)
[2017-09-16] MEDS ORDERED: DICLOFENAC 50 MG PO ONE (14:19)
[2017-09-16] MEDS ORDERED: ISOVUE-370 200 ML INFUS..BTL IV ONE (14:23)
[2017-09-16] MEDS ORDERED: *HR* Heparin 10,000 UNIT/10 ML VIAL ONE (14:23)
[2017-09-16] MEDS ORDERED: 0.9 % Sodium Chloride 2,000 ML ONE (14:23)
[2017-09-16] MEDS ORDERED: Heparin 1,000 UNITS/500 mL 500 ML ONE (14:23)
[2017-09-16] MEDS ORDERED: Nitroglycerin 1,000 MCG/10 ML VIAL IV ONE (14:23)
[2017-09-16] MEDS ORDERED: *HR* Midazolam HCl 2 MG/2 ML VIAL ONE ×2 (15:17→15:39)
--- NOTE | 2017-09-16 15:32 | Pre-Sedation Evaluation ---
Pre-sedation evaluation - Pre-sedation checklist Date of procedure: 09/16/17 Procedure: [facility] Recent Vitals: Last Vital Signs Temp 99.5 F 09/16/17 11:41 Pulse 95 09/16/17 11:41 Resp 17 09/16/17 11:41 BP 100/62 09/16/17 11:41 Pulse Ox 91 09/16/17 11:41 H&P (including ROS) documented in medical record: Yes Previous reaction to sedatives/anesthetics: No Dietary Status: NPO after Midnight Airway Assessment: Patient can open mouth completely, TMJ function normal Dentition: No loose teeth or bridges Possible difficult airway: No ASA Classification *see protocol: CLASS III-Severe systemic disease Plan of Care: Pt appropriate candidate for procedure/moderate/conscious sedation , Risks/benefits of procedure/sedation discussed w/ patient/family, If not NPO; Risk of intake outweiged by necessity to perform procedure
--- NOTE | 2017-09-16 16:19 | Invasive Diagnostic Lab Proc ---
Name: Brooklyn Villarreal Date of Study: 09/16/2017 Date: 1970 Ht: 59.8in Medical Record#: [id number] Age: 47 Wt: 174.17lb Gender: Female BSA: 1.76 Order #: [id number] BMI: 34.19 Physicians Procedure Physician: Ben Kohli DO Referring MD: Referring MD: Indications Indication Unstable Angina Procedures Performed Procedure L HRT ARTERY/VENTRICLE ANGIO Pre-Procedure Checklist Informed consent is complete signed and on chart. H&P is on chart. ID band is on and ID verified with patient. Patient NPO for procedure The procedure was described for the patient and questions were answered. ECG is on chart. Plan of Care Patient will tolerate the procedure without complications. Adequate level of comfort will be maintained. Hemodynamics will remain stable Patient will recover from procedure without complications. Respiratory function will be maintained. Cardiac rhythm will remain stable. Patient temperature will be maintained. Patient and/or family have verbalized understanding of the procedure. Patient Education Allergies Acetaminophen/Hydrocodone Bi DARVOCET N Ketorolac Meperidine ACETAM/HYDROCODONE(325MG/5MG) Ondansetron Latex aspirin Latex, Natural Rubber prochlorperazine hydrocodone propoxyphene *HR* MEPERIDINE TORADOL,COMPAZINE Vital Signs Time BP (mmHg) HR (bpm) O2 Sat. RR (bpm) LOC 03:36 PM / % 4 = Oriented but drowsy 03:24 PM 117 / 64 80 97 % 03:29 PM 101 / 71 76 96 % 03:34 PM 112 / 67 75 90 % 03:40 PM 101 / 71 76 91 % 03:44 PM 91 / 55 73 95 % 03:45 PM 103 / 59 75 96 % 03:49 PM 109 / 68 70 93 % 03:54 PM 115 / 71 73 94 % 03:52 PM / % 4 = Oriented but drowsy Procedural Medications Time Medication Dose Units Method Given By 03:24 PM Oxygen 2 L/min nasal cannula Lisa Fung RN 03:25 PM Versed 1 mg Intravenous SatillaLisa fritz RN 03:31 PM Versed 1 mg Intravenous KentonLisa fritz RN 03:40 PM Lidocaine 2% 10 ml Subcutaneous Ben Kohli DO ASA Classification: CLASS III- Severe systemic disease (i.e. prior AMI, diabetes with vascular complications, morbid obesity) Nati Score Preprocedure Postprocedure Activity 2- Moves 4 extremities sustained head lift Activity 2- Moves 4 extremities sustained head lift Circulation 2- SBP +/= 20 points of pre-anesthetic level Circulation 2- SBP +/= 20 points of pre-anesthetic level Consciousness 2- Awake and alert oriented x 3 Consciousness 2- Awake and alert oriented x 3 O2 Saturation 2- Able to maintain O2 satruation of 92% on room air O2 Saturation 2- Able to maintain O2 satruation of 92% on room air Respiratory 2- Able to deep breathe and cough well Respiratory 2- Able to deep breathe and cough well Total Score 10 Total Score 10 Contrast Agent: Isovue Diagnostic Contrast: 40 ml Total Contrast: 40 ml Fluoro Dose: 141 mGy Procedure Log Time Note Enter By 03:10 PM CathStat 03:13 PM Pt arrived to [facility] 2 at 15:13 cedwards 03:13 PM Patient charges- Angio tray pack, Navilyst 3mm J, Pulse Oximetry and ACIST tubing and transducer cedwards 03:13 PM IV Supplies used: J loop Angio Cath. cedwards 03:21 PM Physician arrived 15:21 cedwards 03:21 PM Meet and greet completed cedwards 03:21 PM Sign in performed according to hospital policy. cedwards 03:21 PM Procedure start 15:21 cedwards 03:23 PM Vitals capture started with the following parameters, Patient=Adult, Interval=5 min, Initial Fupxlhtc=560 mmHg, Deflation Rate=5 mmHg, Cuff placed on Right Arm 03:24 PM HR=80 bpm, AZDD=166/64 mmhg, SpO2=97 % 03:25 PM Time: 15:24 Oxygen on at 2 L/min per nasal cannula by Lisa Fung RN cedwards 03:25 PM Time: 15:25 Versed 1 mg Intravenous Given by Lisa Fung RN cedwards 03:29 PM Recorded ECG: HR=77 Condition=Condition 1 03:29 PM HR=76 bpm, NHWN=124/71 mmhg, SpO2=96.0 %, Comment=NSR 03:31 PM Hair removed from procedure site in procedure lab using clippers. Bilateral groin prepped with Chloraprep by Anh Knott RT, then patient was draped. Skin intact. cedwards 03: PM Time: 15:31 Versed 1 mg Intravenous Given by Lisa Fung RN cedwards 03:34 PM HR=75 bpm, FBST=735/67 mmhg, SpO2=90.0 % 03:34 PM Pressure channel 2 zeroed. 03:36 PM ASA Class CLASS III- Severe systemic disease (i.e. prior AMI, diabetes with vascular complications, morbid obesity) cedwards 03:36 PM Time: 15:36 Patient comfortable and pain free: Yes cedwards 03:36 PM Time: 15:36LOC: 4 = Oriented but drowsy cedwards 03:40 PM HR=76 bpm, DDAZ=664/71 mmhg, SpO2=91.0 %, Comment=NSR 03:40 PM Clinical Presentation: Unstable angina cedwards 03:40 PM Time out performed according to hospital policy cedwards 03:40 PM Time: 15:40 10 ml Lidocaine 2% to right groin Subcutaneous Given by Ben Kohli DO ced 03:40 PM Micro-Introducer Kit utilized for sheath placement cedwards 03:44 PM HR=73 bpm, NIBP=91/55 mmhg, SpO2=95.0 %, Comment=NSR 03:44 PM Access obtained by percutaneous puncture. 6Fr 10cm Terumo [place] sheath placed in right Femoral artery. [id number] cedwards 03:44 PM NIBP STAT measurement started. 03:45 PM HR=75 bpm, MOFT=724/59 mmhg, SpO2=96.0 % 03:45 PM 6Fr FR 4 catheter inserted over the wire [facility] cedwards 03:45 PM Catheter selectively placed in left ventricle cedwards 03:46 PM Recorded Pressure: LV, HR=74, Condition=Condition 1 (Left Ventricle) LV 66/-2/3 03:46 PM Recorded Pressure: LV, Ao, HR=70, Condition=Condition 1 (Left Ventricle) LV 87/-1/3, (Aorta) Ao 102/60/79 03:47 PM Bolus angiogram of left Ventricle complete: hand injection cedwards 03:47 PM RCA angiography performed in multiple views. cedwards 03:47 PM Catheter removed cedwards 03:47 PM Coronary Dominance: right cedwards 03:47 PM 6Fr FL 4 catheter inserted over the wire [facility] cedwards 03:48 PM LCA angiography performed in multiple views. cedwards 03:48 PM Recorded Pressure: Ao, HR=73, Condition=Condition 1 (Aorta) Ao 105/69/85 03:49 PM HR=70 bpm, VNMA=689/68 mmhg, SpO2=93.0 %, Comment=NSR 03:49 PM Catheter removed cedwards 03:49 PM Hand injection of right femoral artery cedwards 03:52 PM Procedure completed at 15:52 cedwards 03:53 PM Did you address KIA flow and Dominance? Yes cedwards 03:53 PM Sign out completed: Radiation Dose 141.19 mGy Fluoro Time: 1.3 Isovue 370 - 200ml contrast 40 ml given by Ben Kohli DO. Complications: NoneCardiac Rehab Consult needed: NoConfirmed administered medications: Yes cedwards 03:53 PM Isovue 370 - 200ml,1 Bottle(s) used. cedwards 03:53 PM Arterial sheath pulled using manual compression and V+ Pad for 20 minutes by Lisa Fung RN cedwards 03:54 PM HR=73 bpm, AXPF=564/71 mmhg, SpO2=94.0 % 03:54 PM Estimated Blood Loss: minimal cedwards 03:54 PM Post ECG NSR cedwards 03:55 PM Post Blood Pressure 115/71 cedwards 03:55 PM Information taught Cardiac Cath cedwards 03:55 PM Education needs Procedure, Plan of Care, and Responsibilities of Patient in Care cedwards 03:55 PM Education Methods Verbal cedwards 03:55 PM Education evaluation Able to repeat information cedwards 03:55 PM Site status No bleeding/hematoma - Rt Groin as reported by Lisa Fung RN at 15:55 cedwards 03:55 PM Plavix, Effient or Brilinta given No cedwards 03:55 PM Family placed in consult room. cedwards 03:56 PM Fluoro Time: 1.3 cedwards 03:56 PM Isovue 370 - 200ml contrast [address] Kohli. cedwards 03:56 PM Radiation Dose 141.19 mGy cedwards 04:07 PM Time: 15:52 Patient comfortable and pain free: Yes cedwards 04:07 PM Time: 15:52LOC: 4 = Oriented but drowsy cedwards 04:12 PM Report given to 3B RN Pt taken to Room #3B11. 16:12 cedwards 04:12 PM Patient out of room: 16:12 cedwards Complications Complication None Hemodynamics Pressures Site Systolic/A Wave Diastolic/V Wave Mean LV 66 -2 3 LV 87 -1 3 AO 102 60 79 AO 105 69 85 Post Procedure Information Blood Pressure: 115/71 mmHg Rhythm: NSR Closure Device Time Device Success/Fail 09/16/2017 3:57:00 PM Manual Compression Successful Site Checks Time Location Status Staff Sheath In? Note 03:55 PM Rt Groin No bleeding/hematoma Lisa Fung RN Pulses Updated by Garrison Dominguez RN on 09/16/2017 4:13:21 PM electronically signed on 09/16/2017 4:14:05 PM with status of Final
[2017-09-16] MEDS: 0.9 % Sodium Chloride 1,000 ML IVC SCH (16:30)
[2017-09-16] MEDS: Acetaminophen/Butalbital/CaffeineTABLET PO PRN (16:42)
--- NOTE | 2017-09-16 17:02 | Internal Med Progress Note ---
Date of Encounter: 09/16/17 Time of Encounter: 17:00 - Assessment and plan (1) Chest pain Current Visit: Yes Status: Acute Assessment and plan: She presented with intermittent left-sided chest pain. ACS rule out protocol and admitted. Continues have no events on telemetry, Echocardiogram unremarkable, with preserved LVEF. Stress test completed today found to be negative for ischemia however, she is continuing to have chest pain. Troponins negative 3. However, ECG did note some possible T-wave changes and anterior lateral leads. Continue to monitor closely. Continue cardiac medications. Cardiology following, patient underwent LHC this afternoon no interventions completed. There was originally some concern for antiplatelet therapy due to history of aneurysms. However, recent imaging shows no concerning findings, neurology has been consult and agrees that recent imaging does not reveal any evidence of subsequent hemorrhaging the patient will be safe for antiplatelet therapy if needed. With improving chest pain and negative heart catheter patient will likely be able to discharge tomorrow. Qualifiers: Chest pain type: unspecified Qualified Code(s): R07.9 - Chest pain, unspecified (2) Chronic migraine Current Visit: Yes Status: Chronic Assessment and plan: History of chronic migraines, improving today. Continue home migraine medication Patient noted that she follow neurologist and has appointment next week on an outpatient basis. She has been encouraged to maintain this appointment. CT angiogram of the neck and angiography of brain, stable compared to previous exams, no flow limiting stenosis noted. Continue to closely monitor, monitor for changes in neurologic status (3) Hypertension Current Visit: Yes Status: Chronic Assessment and plan: BP stable, Close monitoring. Continue home medicine Qualifiers: Hypertension type: essential hypertension Qualified Code(s): I10 - Essential (primary) hypertension (4) Anxiety Current Visit: Yes Status: Chronic Assessment and plan: Anxiety improving, continue anxiolytics (5) DVT prophylaxis Current Visit: Yes Status: Acute Assessment and plan: Continue EPCD's - Time Spent With Patient Total time spent is greater than 50% in coordination of care (as documented) at patient's floor/unit and/or counseling patient: Greater than 35 minutes - Subjective Interval history: No acute changes overnight, seen and examined at bedside today reporting CP is improving. Migraine also improving. - Constitutional Vitals: Temp Pulse Resp BP Pulse Ox 99.5 F 95 17 100/62 91 09/16/17 11:41 09/16/17 11:41 09/16/17 11:41 09/16/17 11:41 09/16/17 11:41 General appearance: Present: cooperative, A&O X 3, no acute distress, answers questions appropriately - Head Head exam: Present: atraumatic, normocephalic - Eye Eye exam: Present: PERRL, conjuntiva pink, sclera anicteric Pupils: Present: PERRL - Neck Neck exam general surgery: Present: supple, trachea midline. Absent: lymphadenopathy - Respiratory Respiratory exam: Present: CTAB. Absent: accessory muscle use, rales, rhonchi, wheezes - Cardiovascular Cardiovascular exam: Present: RRR, +S1, +S2. Absent: diastolic murmur, gallop, rubs, systolic murmur - GI/Abdominal GI/Abdominal exam: Present: normal bowel sounds, soft, no peritoneal signs. Absent: distended, tenderness - Extremities Exam Extremities exam: Present: warm, radial pulses palpable and symmetrical. Absent : calf tenderness, cyanotic, pedal edema - Neurological Exam Neurological exam: Present: CN II-XII intact, oriented X3, no focal deficits. Absent: pronater drift, facial droop, speech deficit - Skin Skin exam: Present: dry, intact Internal Medicine: Result - Labs CBC & Chem 7: 09/15/17 03:52 09/15/17 03:52 - ABG Interpretation ABG results: PT/INR, D-dimer PT 11.4 Seconds (9.4-12.1) 09/13/17 12:52 D-Dimer < 215 ng/mLFEU (0-500) 09/13/17 12:52 - VTE Documentation of Mechanical Device: Intermittent pneumatic compression device Consult Discharge Plan - Plan Referrals: Baltazar Craig DO [Primary Care Provider] - 10/11/17 1:30 pm Dania Alamo [Partnered Physician] - 10/05/17 3:30 pm
[2017-09-16] MEDS: Famotidine 20 MG TABLET PO SCH (21:02)
[2017-09-16] MEDS: traZODone 50 MG TABLET PO SCH (21:03)
[2017-09-17] MEDS: hydrOXYzine pamoate 25 MG CAPSULE PO SCH ×3 (00:31→12:25)
[2017-09-17] MEDS: 0.9 % Sodium Chloride 1,000 ML IVC SCH ×2 (00:31→12:25)
[2017-09-17] MEDS: Acetaminophen/Butalbital/CaffeineTABLET PO PRN (06:32)
[2017-09-17] MEDS: Albuterol 2.5 MG/3 ML NEBULIZER IH SCH ×2 (07:46→15:12)
[2017-09-17] MEDS: (Lubiprostone [Amitiza] 24 MCG) PO SCH (09:41)
[2017-09-17] MEDS: amLODIPine 5 MG TABLET PO SCH (09:50)
[2017-09-17] MEDS: SORBITOL PO SCH (09:50)
[2017-09-17] MEDS: Carbidopa/Levodopa 25/100 TABLET PO SCH (09:50)
[2017-09-17] MEDS: Gabapentin 300 MG CAPSULE PO SCH (09:50)
[2017-09-17] MEDS: *HR* OxyCODONE/APAP 10/325 TABLET PO PRN (10:52)
[2017-09-17 11:04] VITALS: BP 109/74
--- NOTE | 2017-09-17 13:31 | Discharge Summary ---
- NOTES TO OUTPATIENT PROVIDER Notes to Outpatient Provider: Patient admitted with intermittent chest pain. Workup unremarkable, LHC found coronary arteries are angiographically normal. Patient is instructed to follow-up with PCP in 1 week and cardiology within 1-2 weeks as well as neurologist upon discharge Orders not resulted at time of discharge: Pending orders 09/14/17 06:00 NM nasrin perf SPECT multi [NM] Routine 09/16/17 21:17 ECG 12 lead ECG [ECG] Stat Date of Encounter: 09/17/17 Time of Encounter: 13:29 - Discharge Diagnosis (1) Chest pain Priority: Primary Status: Acute Assessment and Plan: She presented with intermittent left-sided chest pain. ACS rule out protocol implemented. ECG with no ischemic changes, troponins negative 3, echocardiogram unremarkable. Patient underwent LHC was found to have angiographically normal coronary arteries. Chest pain continues to be intermittent and mild 2/10. Patient known to have stable angina and a nitroglycerin home. Uneventful hospital course. Throughout the hospital stay patient had no events on telemetry. She has been instructed to Continue cardiac medications upon discharge and follow-up with cardiology on an outpatient basis. Additionally, she is instructed to follow-up with PCP within 1 week of discharge and follow-up with neurologist. Patient continued to have chest pain rated 2/10 however this is an improvement. Chest pain is intermittent. With negative workup and being hemodynamically stable the patient is medically stable for discharge. Qualifiers: Chest pain type: unspecified Qualified Code(s): R07.9 - Chest pain, unspecified (2) Chronic migraine Priority: Secondary Status: Chronic Assessment and Plan: History of chronic migraines, improving today. Continue home migraine medication upon discharge Patient noted that she follow neurologist and has appointment next week on an outpatient basis. She has been encouraged to maintain this appointment. CT angiogram of the neck and angiography of brain, stable compared to previous exams, no flow limiting stenosis noted. (3) Hypertension Priority: Secondary Status: Chronic Assessment and Plan: BP stable, throughout stay Continue home medicine Qualifiers: Hypertension type: essential hypertension Qualified Code(s): I10 - Essential (primary) hypertension (4) Anxiety Priority: Secondary Status: Chronic Assessment and Plan: continue anxiolytics (5) DVT prophylaxis Priority: Secondary Status: Acute Assessment and Plan: Continue EPCD's Hospital course: Ms. Villarreal is a 47 year old female She presented with intermittent left-sided chest pain. ACS rule out protocol implemented. ECG with no ischemic changes, troponins negative 3, echocardiogram unremarkable. Patient underwent LHC was found to have angiographically normal coronary arteries. Chest pain continues to be intermittent and mild 2/10. Patient known to have stable angina and a nitroglycerin home. Uneventful hospital course. Throughout the hospital stay patient had no events on telemetry. She has been instructed to Continue cardiac medications upon discharge and follow-up with cardiology on an outpatient basis. Additionally, she is instructed to follow-up with PCP within 1 week of discharge and follow-up with neurologist. Patient continued to have chest pain rated 2/10 however this is an improvement. Chest pain is intermittent. With negative workup and being hemodynamically stable the patient is medically stable for discharge. Discharge discussed with: patient, nurse, design consultant - Time Spent with Patient Total time spent providing and/or coordinating discharge services: Greater than 30 minutes - Discharge Medications Home Medications: Acetaminophen/Butalbital/Caffe [Fioricet] 1 tab PO Q4HR PRN 07/21/17 [History] Albuterol Neb [Proventil Neb] 2.5 mg IH TID 07/21/17 [History] Albuterol Sulfate [Proair Hfa] 2 puff IH Q4H PRN 07/21/17 [History] Citalopram Hydrobromide [Citalopram HBr] 40 mg PO DAILY 07/21/17 [History] Cyclobenzaprine [Flexeril] 10 mg PO BID 07/21/17 [History] Famotidine [Heartburn Prevention] 20 mg PO HS 07/21/17 [History] Gabapentin [Neurontin] 300 mg PO TID 07/21/17 [History] Promethazine [Phenergan] 25 mg PO DAILY PRN 07/21/17 [History] Trazodone HCl 300 mg PO HS 07/21/17 [History] Zolpidem [Ambien] 10 mg PO HS 07/21/17 [History] amLODIPine [Norvasc] 5 mg PO DAILY 07/21/17 [History] hydrOXYzine HCl [Hydroxyzine HCl] 50 mg PO Q6H 07/21/17 [History] Carbidopa/Levodopa [Carbidopa-Levodopa 25-100 Tab] 1 tab PO DAILY 09/13/17 [ History] Diclofenac Potassium [Cambia] 50 mg PO DAILY PRN 09/13/17 [History] Lubiprostone [Amitiza] 24 mcg PO DAILY 09/13/17 [History] OxyCODONE/APAP 10/325 [Percocet 10/325 MG] 1 tab PO Q6HR PRN 09/13/17 [History] Sorbitol Soln [Sorbitol] 30 ml PO DAILY 09/13/17 [History] Allergies/Adverse Reactions: 3 Allergy/AdvReac Type Severity Reaction Status Date / Time aspirin Allergy See Verified 09/13/17 14:34 Comments ketorolac [From Toradol] Allergy Anxiety Verified 09/13/17 14:34 Latex, Natural Rubber Allergy Anaphylaxis Verified 09/13/17 14:34 metoclopramide [From Reglan] Allergy Anxiety Verified 09/13/17 14:34 prochlorperazine Allergy Anxiety Verified 09/13/17 14:34 [From Compazine] propoxyphene Allergy Anxiety Verified 09/13/17 14:34 [From Darvocet-N] sumatriptan [From Imitrex] Allergy See Verified 09/13/17 14:34 Comments acetaminophen [From Vicodin] AdvReac Headache Verified 09/13/17 14:34 diphenhydramine AdvReac Anxiety Verified 09/13/17 14:34 [From Benadryl] hydrocodone [From Vicodin] AdvReac Headache Verified 09/13/17 14:34 any blood thinners AdvReac unable to Uncoded 09/13/17 14:34 have due to history Date of admission: 09/13/17 14:24 Primary care physician: Baltazar Craig DO Consults: 09/15/17 18:03 Consult to Neurology [CONS] Routine Consulting Provider: Neu[facility] Reason for Consult: History of brain aneurysm x 3, coiling and clipping. Patient admitted with chest pain, workup found to be negative including negative stress test and normal echo. Continues to have chest pain, concern whether or not LHC can be completed due to aneurysm with coiling and clipping. Time Notified: 18:04 Call Completed: Yes Discharging clinician: Isael Quiroga Anticipated date of discharge: 09/17/17 - Constitutional Vitals: Temp Pulse Resp BP Pulse Ox 98.1 F 76 17 109/74 97 09/17/17 11:03 09/17/17 11:03 09/17/17 11:03 09/17/17 11:03 09/17/17 11:03 General appearance: Present: cooperative, A&O X 3, no acute distress, answers questions appropriately - Head Head exam: Present: atraumatic, normocephalic - Eye Eye exam: Present: PERRL, conjuntiva pink, sclera anicteric Pupils: Present: PERRL - Neck Neck exam general surgery: Present: supple, trachea midline. Absent: lymphadenopathy - Respiratory Respiratory exam: Present: CTAB. Absent: accessory muscle use, rales, rhonchi, wheezes - Cardiovascular Cardiovascular exam: Present: RRR, +S1, +S2. Absent: diastolic murmur, gallop, rubs, systolic murmur - GI/Abdominal GI/Abdominal exam: Present: normal bowel sounds, soft, no peritoneal signs. Absent: distended, tenderness - Extremities Exam Extremities exam: Present: warm, radial pulses palpable and symmetrical. Absent : calf tenderness, cyanotic, pedal edema - Neurological Exam Neurological exam: Present: CN II-XII intact, oriented X3, no focal deficits. Absent: pronater drift, facial droop, speech deficit - Skin Skin exam: Present: dry, intact - Patient Status Disposition: Home, Self-Care Condition: Fair Overall status at discharge: patient is progressing back to baseline - Discharge Instructions Follow Up With: Baltazar Craig DO [Primary Care Provider] - 10/11/17 1:30 pm Dania Alamo [Partnered Physician] - 10/05/17 3:30 pm - VTE Documentation of Mechanical Device: Intermittent pneumatic compression device
--- NOTE | 2017-09-19 14:17 | Electrocardiograph Report ---
[address] [place] [address] Test Date: 2017-09-16 Pat Name: Brooklyn Villarreal Department: 113 Room: 3B11 Gender: F Director Of Individual Giving: [id number] Requested By: Teresita Savage Order Number: [id number] Reading MD: Estrella Batista Measurements Intervals [place] Rate: 75 P: 36 MT: 153 QRS: 3 QRSD: 96 T: 21 QT: 411 QTc: 440 Interpretive Statements SINUS RHYTHM MODERATE T-WAVE ABNORMALITY, CONSIDER ANTERIOR ISCHEMIA Electronically Signed On 09-19-2017 14:16:22 EDT by Estrella Batista
== END 2017-09-17 15:15 | disposition home or self-care (01) ==
LOC: EMEROO 11:30 → 3BNU 11:30
PROVIDERS: ADMIT General Practice; ATTEND General Practice

== ENCOUNTER 2018-03-16 15:57 | Observation (INO) ==
[2018-03-16] MEDS ORDERED: Albuterol 2.5 MG/3 ML NEBULIZER IH ONE (16:16)
[2018-03-16] MEDS ORDERED: 0.9 % Sodium Chloride 1,000 ML IVC ONE (16:16)
[2018-03-16] MEDS ORDERED: methylPREDNISolone 125 MG/2 ML VIAL IVP ONE (16:16)
[2018-03-16] MEDS ORDERED: Ipratropium/Albuterol Neb 3 ML IH ONE (16:16)
--- NOTE | 2018-03-16 16:19 | Emergency Department Note ---
Disposition Clinical Impression: Unstable angina, Chest pressure, Cardiac enlargement Asthma exacerbation Qualifiers: Asthma severity: moderate Asthma persistence: unspecified Qualified Code(s): J45.901 - Unspecified asthma with (acute) exacerbation Disposition: Admitted As Inpatient Condition: Fair Referrals: NONE,PCP [Primary Care Provider] - Forms: ED Satisfaction Letter Time of Disposition: 19:31 Chest Pain HPI - General Chief Complaint: ED Chest Pain Stated Complaint: CP DARIEN Time Seen by Provider: 03/16/18 16:07 Source: patient Mode of arrival: ambulatory Limitations: no limitations Vital Signs Reviewed: Yes Nursing Notes Reviewed: Yes - History of Present Illness HPI Narrative: Patient presents to the ED with the chief complaint of chest pain and shortness of breath. Patient has a history of asthma, non-oxygen dependent. Has been taking breathing treatments at home over the last 48 hours. States that she started getting worse 48 hours ago. She also started developing centralized chest pressure and heaviness that radiates to her left shoulder, which is different than her normal chest tightness associated with her asthma. She has been using breathing treatments at home without relief. No fever or chills. She complains of gradually increasing shortness of breath and dyspnea on exertion. Also complaining of some nausea but no vomiting. Mild nonproductive cough, which is actually decreased from baseline. No abdominal pain, vomiting, diarrhea, rash, pain or swelling in her legs. No history of DVT, PE or malignancy. Does have a history of chronic angina and is on Imdur. Last heart catheter was in September of this urine was unremarkable. No stents bypasses, or previous MIs. Severity scale (1-10): 6 - Related Data Home Medications Medication Instructions Recorded Confirmed Acetaminophen/Butalbital/Caffe 1 tab PO Q4HR PRN 07/21/17 09/13/17 [Fioricet] Albuterol Neb [Proventil Neb] 2.5 mg IH TID 07/21/17 09/13/17 Albuterol Sulfate [Proair Hfa] 2 puff IH Q4H PRN 07/21/17 09/13/17 Citalopram Hydrobromide 40 mg PO DAILY 07/21/17 09/13/17 [Citalopram HBr] Cyclobenzaprine [Flexeril] 10 mg PO BID 07/21/17 09/13/17 Famotidine [Heartburn Prevention] 20 mg PO HS 07/21/17 09/13/17 Gabapentin [Neurontin] 300 mg PO TID 07/21/17 09/13/17 Promethazine [Phenergan] 25 mg PO DAILY PRN 07/21/17 09/13/17 Trazodone HCl 300 mg PO HS 07/21/17 09/13/17 Zolpidem [Ambien] 10 mg PO HS 07/21/17 09/13/17 amLODIPine [Norvasc] 5 mg PO DAILY 07/21/17 09/13/17 hydrOXYzine HCl [Hydroxyzine HCl] 50 mg PO Q6H 07/21/17 09/13/17 Carbidopa/Levodopa 1 tab PO DAILY 09/13/17 09/13/17 [Carbidopa-Levodopa 25-100 Tab] Diclofenac Potassium [Cambia] 50 mg PO DAILY PRN 09/13/17 09/13/17 Lubiprostone [Amitiza] 24 mcg PO DAILY 09/13/17 09/13/17 OxyCODONE/APAP 10/325 [Percocet 1 tab PO Q6HR PRN 09/13/17 09/13/17 10/325 MG] Sorbitol Soln [Sorbitol] 30 ml PO DAILY 09/13/17 09/13/17 Previous Rx's Medication Instructions Recorded Benzonatate [Tessalon] 200 mg PO TID PRN #30 capsule 02/04/18 Allergies Allergy/AdvReac Type Severity Reaction Status Date / Time aspirin Allergy See Verified 09/13/17 14:34 Comments ketorolac [From Toradol] Allergy Anxiety Verified 09/13/17 14:34 Latex, Natural Rubber Allergy Anaphylaxis Verified 09/13/17 14:34 metoclopramide [From Reglan] Allergy Anxiety Verified 09/13/17 14:34 prochlorperazine Allergy Anxiety Verified 09/13/17 14:34 [From Compazine] propoxyphene Allergy Anxiety Verified 09/13/17 14:34 [From Darvocet-N] sumatriptan [From Imitrex] Allergy See Verified 09/13/17 14:34 Comments acetaminophen [From Vicodin] AdvReac Headache Verified 09/13/17 14:34 diphenhydramine AdvReac Anxiety Verified 09/13/17 14:34 [From Benadryl] hydrocodone [From Vicodin] AdvReac Headache Verified 09/13/17 14:34 any blood thinners AdvReac unable to Uncoded 09/13/17 14:34 have due to history Review of Systems: As reviewed in the HPI. All other systems reviewed are negative or normal. Chest Pain PMH - Past Medical History Medical history: Reports: hypertension Surgical history: Reports: hysterectomy, other Psychiatric history: Reports: anxiety HAND II TUBE BENDER history: Reports: no HAND II TUBE BENDER history - Social History Smoking Status: Never smoker Alcohol use: Reports: none Drug use: Reports: none Physical Exam CONSTITUTIONAL: [well appearing, alert and in mild resp distress] EYES: [EOMI, clear conjunctiva, PERRLA] HENT: [Normocephalic, atraumatic, moist mucus membranes, normal oropharynx] NECK: [normal inspection, full ROM, trachea midline, no obvious swelling] PULMONARY: [Mild respiratory distress, decreased breath sounds bilateral bases, mild wheezing throughout CARDIOVASCULAR: [regular rate, regular rhythm, normal heart sounds, no murmurs, distal extremities are warm and well perfused] GASTROINSTESTINAL: [soft, non-tender, non-rigid, non-distended, no guarding, no rebound, normal bowel sounds] GENITOURINARY/RECTAL: [deferred] NEUROLOGIC: [Alert, oriented x3, normal speech, moves all extremities] EXTREMITIES: [Normal inspection, full ROM, no tenderness, no pedal edema, normal capillary refill] MUSCULOSKELETAL: [no gross deformities, atraumatic] SKIN: [No cyanosis, no diaphoresis, normal color, warm, no rash] PSYCHIATRIC: [normal mood and affect] Course Course Narrative: patient's workup shows enlarged cardiac chambers which is new from previous. will admit for repeat echo and further asthma exacerbation workup. Vital Signs Temperature 97.8 F 03/16/18 15:58 Pulse Rate 75 03/16/18 15:58 Respiratory Rate 21 03/16/18 15:58 Blood Pressure 120/78 03/16/18 15:58 O2 Sat by Pulse Oximetry 99 03/16/18 15:58 Temperature 97.8 F 03/16/18 16:45 Pulse Rate 84 03/16/18 19:17 Respiratory Rate 24 03/16/18 17:50 Blood Pressure 126/81 03/16/18 19:17 O2 Sat by Pulse Oximetry 100 03/16/18 19:17 Oxygen Delivery Oxygen Delivery Nasal Cannula Chest Pain - Medical Records Medical records reviewed: Yes I reviewed the patient's medical records. - Lab Data Lab results reviewed: Yes I reviewed the patient's lab results. Result diagrams: 03/16/18 16:16 03/16/18 16:16 Lab Results 03/16/18 03/16/18 03/16/18 Range/Units 16:16 16:16 16:25 WBC 7.1 (4.3-11.1) K/mcL RBC 4.13 (3.82-4.97) M/mcL Hgb 12.0 (11.5-15.4) g/dL Hct 36.9 (35.3-44.9) % MCV 89.3 (83.0-100.0) fL MCH 29.1 (28.0-33.3) pg MCHC 32.5 (31.6-35.5) g/dL RDW 13.1 (11.5-14.5) % Plt Count 305 (140-400) K/mcL MPV 9.4 (9.4-12.4) fL Immature Gran % 0.6 (0-4) % Seg Neutrophils % 59.5 % Lymphocytes % 30.9 % Monocytes % 7.1 % Eosinophils % 1.6 % Basophils % 0.3 % Neutrophils # 4.2 (1.6-8.9) K/mcL Lymphocytes # 2.2 (0.6-4.6) K/mcL Monocytes # 0.5 (0.0-1.3) K/mcL Eosinophils # 0.1 (0.0-0.6) K/mcL Basophils # 0.0 (0.0-0.2) K/mcL Sodium 138 (136-145) mEq/L Potassium 4.1 (3.5-5.1) mEq/L Chloride 100 (98-107) mEq/L Carbon Dioxide 30 H (23-29) mEq/L BUN 11 (6-20) mg/dL Creatinine 0.77 (0.60-1.20) mg/dL Est GFR ( Amer) > 60 (> 60) Est GFR (Non-Af Amer) > 60 (> 60) BUN/Creatinine Ratio 14 (6-26) Glucose 99 (70-105) mg/dL Calculated Osmolality 285 (280-300) Lactic Acid (0.5-2.2) mmol/L Calcium 9.6 (8.6-10.3) mg/dL Troponin I < 0.03 (< 0.04) ng/mL B-Natriuretic Peptide 7 (Less than 100) pg/mL Urine Color (Yellow) Urine Clarity (Clear) Urine pH (5.0-8.0) pH Units Ur Specific Teague (1.010-1.025) Urine Protein (Neg-Trace) mg/dL Urine Glucose (UA) (Normal) mg/dL Urine Ketones (Negative) mg/dL Urine Blood (Negative) Urine Nitrite (Negative) Urine Bilirubin (Negative) Urine Urobilinogen (Normal) mg/dL Ur Leukocyte Esterase (Negative) Urine Microscopic RBC (0-3) per hpf Urine Microscopic WBC (0-3) per hpf Ur Squamous Epith Cells (None-Few) per lpf Urine Bacteria (None-Few) per hpf Hyaline Casts (None-Few) per lpf Ur Culture Indicated? (NO) 03/16/18 03/16/18 Range/Units 16:54 18:54 WBC (4.3-11.1) K/mcL RBC (3.82-4.97) M/mcL Hgb (11.5-15.4) g/dL Hct (35.3-44.9) % MCV (83.0-100.0) fL MCH (28.0-33.3) pg MCHC (31.6-35.5) g/dL RDW (11.5-14.5) % Plt Count (140-400) K/mcL MPV (9.4-12.4) fL Immature Gran % (0-4) % Seg Neutrophils % % Lymphocytes % % Monocytes % % Eosinophils % % Basophils % % Neutrophils # (1.6-8.9) K/mcL Lymphocytes # (0.6-4.6) K/mcL Monocytes # (0.0-1.3) K/mcL Eosinophils # (0.0-0.6) K/mcL Basophils # (0.0-0.2) K/mcL Sodium (136-145) mEq/L Potassium (3.5-5.1) mEq/L Chloride (98-107) mEq/L Carbon Dioxide (23-29) mEq/L BUN (6-20) mg/dL Creatinine (0.60-1.20) mg/dL Est GFR ( Amer) (> 60) Est GFR (Non-Af Amer) (> 60) BUN/Creatinine Ratio (6-26) Glucose (70-105) mg/dL Calculated Osmolality (280-300) Lactic Acid 1.3 (0.5-2.2) mmol/L Calcium (8.6-10.3) mg/dL Troponin I (< 0.04) ng/mL B-Natriuretic Peptide (Less than 100) pg/mL Urine Color Yellow (Yellow) Urine Clarity Clear (Clear) Urine pH 8.0 (5.0-8.0) pH Units Ur Specific Teague 1.013 (1.010-1.025) Urine Protein Negative (Neg-Trace) mg/dL Urine Glucose (UA) Normal (Normal) mg/dL Urine Ketones Negative (Negative) mg/dL Urine Blood Negative (Negative) Urine Nitrite Negative (Negative) Urine Bilirubin Negative (Negative) Urine Urobilinogen Normal (Normal) mg/dL Ur Leukocyte Esterase Small H (Negative) Urine Microscopic RBC 0-3 (0-3) per hpf Urine Microscopic WBC 3-5 H (0-3) per hpf Ur Squamous Epith Cells Many H (None-Few) per lpf Urine Bacteria None Seen (None-Few) per hpf Hyaline Casts None Seen (None-Few) per lpf Ur Culture Indicated? NO. A (NO) - Radiology Data Radiology results reviewed: Yes I reviewed the patient's radiology results. - EKG Data EKG attestation: Yes I reviewed and interpreted this EKG. EKG results narrative: Ancillary rhythm, rate 75, indeterminate axis, T wave changes anteriorly that are consistent with previous EKG. No acute ischemic changes
[2018-03-16] MEDS ORDERED: Nitroglycerin 0.4 MG TAB.SUBL SL PRN (16:39)
[2018-03-16 16:47] LABS: Basophils % 0.3 %; Eosinophils # 0.1 K/mcL (0.0-0.6); Eosinophils % 1.6 %; Hematocrit 36.9 % (35.3-44.9); Immature Granulocytes % 0.6 % (0-4); Lymphocytes # 2.2 K/mcL (0.6-4.6); Lymphocytes % 30.9 %; Mean Corpuscular HGB Conc 32.5 g/dL (31.6-35.5); Mean Corpuscular Hemoglobin 29.1 pg (28.0-33.3); Mean Corpuscular Volume 89.3 fL (83.0-100.0); Mean Platelet Volume 9.4 fL (9.4-12.4); Monocytes # 0.5 K/mcL (0.0-1.3); Monocytes % 7.1 %; Neutrophils # 4.2 K/mcL (1.6-8.9); Platelet Count 305 K/mcL (140-400); Red Blood Count 4.13 M/mcL (3.82-4.97); Red Cell Distribution Width 13.1 % (11.5-14.5); Segmented Neutrophils % 59.5 %
[2018-03-16] MEDS ORDERED: Ondansetron 4 MG/2 ML VIAL ONE (16:58)
[2018-03-16 17:10] LABS: BUN/Creatinine Ratio 14 (6-26); Blood Urea Nitrogen 11 mg/dL (6-20); Calcium 9.6 mg/dL (8.6-10.3); Carbon Dioxide 30 mEq/L (23-29); Chloride 100 mEq/L (98-107); Glucose 99 mg/dL (70-105); Osmolality,Calculated 285 (280-300); Potassium 4.1 mEq/L (3.5-5.1); Sodium 138 mEq/L (136-145); Troponin I < 0.03 ng/mL (< 0.04); eGFR For Non-African Americans > 60 (> 60)
[2018-03-16] MEDS ORDERED: *HR* Promethazine 25 MG/ML VIAL IVP ONE (17:19)
[2018-03-16] MEDS ORDERED: *HR* LORazepam 2 MG/ML VIAL IVP ONE (17:19)
[2018-03-16] MEDS ORDERED: Isovue-370 500 ML INFUS..BTL IV ONE (17:20)
--- NOTE | 2018-03-16 17:21 | Emergency Department Note ---
Disposition Clinical Impression: Unstable angina, Chest pressure Asthma exacerbation Qualifiers: Asthma severity: moderate Asthma persistence: unspecified Qualified Code(s): J45.901 - Unspecified asthma with (acute) exacerbation Disposition: Still a Patient Forms: ED Satisfaction Letter General Adult HPI - General Chief complaint: ED Chest Pain Stated complaint: CP DARIEN Time Seen by Provider: 03/16/18 16:07 Source: patient Mode of arrival: ambulatory Limitations: no limitations - History of Present Illness Pain Scale: 6 - Related Data Home Medications Medication Instructions Recorded Confirmed Acetaminophen/Butalbital/Caffe 1 tab PO Q4HR PRN 07/21/17 09/13/17 [Fioricet] Albuterol Neb [Proventil Neb] 2.5 mg IH TID 07/21/17 09/13/17 Albuterol Sulfate [Proair Hfa] 2 puff IH Q4H PRN 07/21/17 09/13/17 Citalopram Hydrobromide 40 mg PO DAILY 07/21/17 09/13/17 [Citalopram HBr] Cyclobenzaprine [Flexeril] 10 mg PO BID 07/21/17 09/13/17 Famotidine [Heartburn Prevention] 20 mg PO HS 07/21/17 09/13/17 Gabapentin [Neurontin] 300 mg PO TID 07/21/17 09/13/17 Promethazine [Phenergan] 25 mg PO DAILY PRN 07/21/17 09/13/17 Trazodone HCl 300 mg PO HS 07/21/17 09/13/17 Zolpidem [Ambien] 10 mg PO HS 07/21/17 09/13/17 amLODIPine [Norvasc] 5 mg PO DAILY 07/21/17 09/13/17 hydrOXYzine HCl [Hydroxyzine HCl] 50 mg PO Q6H 07/21/17 09/13/17 Carbidopa/Levodopa 1 tab PO DAILY 09/13/17 09/13/17 [Carbidopa-Levodopa 25-100 Tab] Diclofenac Potassium [Cambia] 50 mg PO DAILY PRN 09/13/17 09/13/17 Lubiprostone [Amitiza] 24 mcg PO DAILY 09/13/17 09/13/17 OxyCODONE/APAP 10/325 [Percocet 1 tab PO Q6HR PRN 09/13/17 09/13/17 10/325 MG] Sorbitol Soln [Sorbitol] 30 ml PO DAILY 09/13/17 09/13/17 Previous Rx's Medication Instructions Recorded Azithromycin [Azithromycin 6-Tab 250 mg PO PER PKG DI #6 tab 02/04/18 Pack] Benzonatate [Tessalon] 200 mg PO TID PRN #30 capsule 02/04/18 methylPREDNISolone [Medrol] 4 mg PO TAPER #21 tablet 02/04/18 Allergies Allergy/AdvReac Type Severity Reaction Status Date / Time aspirin Allergy See Verified 09/13/17 14:34 Comments ketorolac [From Toradol] Allergy Anxiety Verified 09/13/17 14:34 Latex, Natural Rubber Allergy Anaphylaxis Verified 09/13/17 14:34 metoclopramide [From Reglan] Allergy Anxiety Verified 09/13/17 14:34 prochlorperazine Allergy Anxiety Verified 09/13/17 14:34 [From Compazine] propoxyphene Allergy Anxiety Verified 09/13/17 14:34 [From Darvocet-N] sumatriptan [From Imitrex] Allergy See Verified 09/13/17 14:34 Comments acetaminophen [From Vicodin] AdvReac Headache Verified 09/13/17 14:34 diphenhydramine AdvReac Anxiety Verified 09/13/17 14:34 [From Benadryl] hydrocodone [From Vicodin] AdvReac Headache Verified 09/13/17 14:34 any blood thinners AdvReac unable to Uncoded 09/13/17 14:34 have due to history Past Medical History - Past Medical History Medical history: Reports: CVA, fibromyalgia, hypertension, migraine, TIA Surgical history: Reports: hysterectomy, other Psychiatric history: Reports: anxiety DOUGH 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 - Social History Smoking Status: Never smoker Smokeless Tobacco Status: No Alcohol use: Reports: none Drug use: Reports: none Physical Exam - General Limitations: no limitations General appearance: alert, in no apparent distress Course Vital Signs Temperature 97.8 F 03/16/18 15:58 Pulse Rate 75 03/16/18 15:58 Respiratory Rate 21 03/16/18 15:58 Blood Pressure 120/78 03/16/18 15:58 O2 Sat by Pulse Oximetry 99 03/16/18 15:58 Temperature 97.8 F 03/16/18 16:45 Pulse Rate 84 03/16/18 17:18 Respiratory Rate 32 03/16/18 17:18 Blood Pressure 89/54 03/16/18 17:18 O2 Sat by Pulse Oximetry 100 03/16/18 17:18 Oxygen Delivery Oxygen Delivery Nasal Cannula Medical Decision Making - Medical Records Medical records reviewed: Yes I reviewed the patient's medical records. - Lab Data Lab results reviewed: Yes I reviewed the patient's lab results. Result diagrams: 03/16/18 16:16 03/16/18 16:16 Lab Results 03/16/18 03/16/18 Range/Units 16:16 16:16 WBC 7.1 (4.3-11.1) K/mcL RBC 4.13 (3.82-4.97) M/mcL Hgb 12.0 (11.5-15.4) g/dL Hct 36.9 (35.3-44.9) % MCV 89.3 (83.0-100.0) fL MCH 29.1 (28.0-33.3) pg MCHC 32.5 (31.6-35.5) g/dL RDW 13.1 (11.5-14.5) % Plt Count 305 (140-400) K/mcL MPV 9.4 (9.4-12.4) fL Immature Gran % 0.6 (0-4) % Seg Neutrophils % 59.5 % Lymphocytes % 30.9 % Monocytes % 7.1 % Eosinophils % 1.6 % Basophils % 0.3 % Neutrophils # 4.2 (1.6-8.9) K/mcL Lymphocytes # 2.2 (0.6-4.6) K/mcL Monocytes # 0.5 (0.0-1.3) K/mcL Eosinophils # 0.1 (0.0-0.6) K/mcL Basophils # 0.0 (0.0-0.2) K/mcL Sodium 138 (136-145) mEq/L Potassium 4.1 (3.5-5.1) mEq/L Chloride 100 (98-107) mEq/L Carbon Dioxide 30 H (23-29) mEq/L BUN 11 (6-20) mg/dL Creatinine 0.77 (0.60-1.20) mg/dL Est GFR ( Amer) > 60 (> 60) Est GFR (Non-Af Amer) > 60 (> 60) BUN/Creatinine Ratio 14 (6-26) Glucose 99 (70-105) mg/dL Calculated Osmolality 285 (280-300) Calcium 9.6 (8.6-10.3) mg/dL Troponin I < 0.03 (< 0.04) ng/mL - Radiology Data Radiology results reviewed: Yes I reviewed the patient's radiology results. Attestation Statement - Attestation Attestation: I examined this patient and my medical decision-making was reviewed with the Resident Physician. I agree with the documented findings, disposition and treatment plan as described except to the extent set forth below. 48-year-old female presents emergency room for chest heaviness and shortness of breath. She states she has a history of asthma. She has been using DuoNeb treatments at home due to the shortness of breath. She presented to the ER somewhat hypotensive and has been having this ongoing chest pain. She had a recent heart catheter in September of this year that did not show any lesions that needed to have a stent. She did not tolerate the 1 nitroglycerin that we gave her here as her blood pressure bottomed to the 70 systolic. She started hyperventilating with complaints of increasing shortness of breath. Patient will need a CTA of the chest to evaluate for any pulmonary embolus as well. She does not take any blood thinners she states secondary to having brain aneurysms. Anticipated admission. Her EKG is unchanged from previous. She does have diffuse T-wave inversions in V2 through V4.
[2018-03-16 19:06] LABS: Bilirubin,Urine Negative (Negative); Blood,Urine Negative (Negative); Clarity,Urine Clear (Clear); Color,Urine Yellow (Yellow); Glucose,Urine (UA) Normal (Normal); Ketones,Urine Negative (Negative); Leukocyte Esterase,Urine Small (Negative); Nitrite,Urine Negative (Negative); Protein,Urine Negative (Neg-Trace); Specific Gravity,Urine 1.013 (1.010-1.025); Urobilinogen,Urine Normal (Normal)
[2018-03-16 19:08] LABS: Bacteria,Urine None Seen per hpf (None-Few); Hyaline Casts,Urine None Seen per lpf (None-Few); RBC,Urine 0-3 per hpf (0-3); Squamous Epithelial Cell,Urine Many per lpf (None-Few)
--- NOTE | 2018-03-16 20:12 | Internal Med History&Physical ---
<Ronny Christensen - Last Filed: 03/16/18 23:49> Date of Encounter: 03/16/18 Time of Encounter: 20:10 Internal Medicine - H&P: HPI Chief complaint: Chest pain and shortness of breath History of present illness: Brooklyn Villarreal is a 48-year-old female with a PMH of CVA, fibromyalgia, HTN, migraine, TIA, and brain aneurysm who presented to [facility] ED on 03/16/18 with a ief complaint of shortness of breath and chest pain. Patient reports that she has had intermittent chest pain for the last 10 years, and that she has been diagnosed with angina. Also has a known history of non-oxygen dependent asthma. She reports having taken several breathing treatments over the last 48 hours. She says that today, she began to experience shortness of breath and developed chest pain when she laid down in bed. Pain radiated to the left shoulder. Patient was given nitroglycerin, and her blood pressure subsequently decreased to the 70s systolic. Patient began to hyperventilate with complaints of increasing shortness of breath. Upon arrival to the emergency department, patients vital signs were as follows: Temp 97.8, HR 75, RR 21, BP 120/78, O2 sat 99. Laboratory analysis was unremarkable. BNP was 7, troponin was less than 0.03. Urinalysis was unremarkable. CXR demonstrated no acute process. CTA of the chest demonstrated cardiac chamber enlargement, but overall, no acute abnormalities. EKG demonstrated diffuse T-wave inversions in V2 - V4; unchanged from previous. In the ED, patient was given 1 L of normal saline, Tylenol, Proventil med, albuterol, Solu-Medrol, Phenergan, and nitroglycerin. Patient reported that after she received a breathing treatment, her breathing began to get worse, and that she began to feel very shaky. She was given 1 mg of Ativan, and her symptoms subsequently improved. Patient was seen and examined at bedside; she reports that she is experiencing a headache right now. She admits to photophobia. Headache is located in the frontal and temporal areas. Bilateral without localization. No associated visual changes. Also admits to having nausea, SOB, and intermittent cough. Denies vomiting, fever, chills, increased sputum production, chest pain, palpitations, numbness, tingling, or weakness. Patient has no further complaints at this time. Past Med Surg Social Fam HX - Past Medical History Medical history: hypertension Additional medical history: RLS. insomnia. brain aneurysm x 3 Psychiatric history: anxiety - Past Surgical History Surgical History: hysterectomy, other Additional surgical history: brain surgeryx2 for aneurysm, skull repair, tongue clipped, tonsillectomy, nerve decompression headx4 - Social History Smoking Status: Never smoker Smokeless Tobacco Status: No Alcohol use: none Drug use: none - Family History Mother Hx Family Cardiac Disorders: Yes (HTN) Hx Family Neurologic Disorders: Yes (brain aneurysms) Internal Medicine - H&P: Meds Acetaminophen/Butalbital/Caffe [Fioricet] 1 tab PO Q4HR PRN 07/21/17 [History] Albuterol Neb [Proventil Neb] 2.5 mg IH TID 07/21/17 [History] Albuterol Sulfate [Proair Hfa] 2 puff IH Q4H PRN 07/21/17 [History] Citalopram Hydrobromide [Citalopram HBr] 40 mg PO DAILY 07/21/17 [History] Cyclobenzaprine [Flexeril] 10 mg PO BID 07/21/17 [History] Famotidine [Heartburn Prevention] 20 mg PO HS 07/21/17 [History] Gabapentin [Neurontin] 300 mg PO TID 07/21/17 [History] Promethazine [Phenergan] 25 mg PO DAILY PRN 07/21/17 [History] Trazodone HCl 150 - 300 mg PO HS PRN 07/21/17 [History] Zolpidem [Ambien] 10 mg PO HS 07/21/17 [History] amLODIPine [Norvasc] 5 mg PO DAILY 07/21/17 [History] hydrOXYzine HCl [Hydroxyzine HCl] 50 mg PO Q6H 07/21/17 [History] Carbidopa/Levodopa [Carbidopa-Levodopa 25-100 Tab] 1 tab PO DAILY 09/13/17 [Hist ory] Diclofenac Potassium [Cambia] 50 mg PO DAILY PRN 09/13/17 [History] Lubiprostone [Amitiza] 24 mcg PO DAILY 09/13/17 [History] OxyCODONE/APAP 10/325 [Percocet 10/325 MG] 1 tab PO Q6HR PRN 09/13/17 [History] Sorbitol Soln [Sorbitol] 30 ml PO DAILY 09/13/17 [History] Erenumab-Aooe [Aimovig Autoinjector] 70 mg SQ QMONTH 03/16/18 [History] Allergy/AdvReac Type Severity Reaction Status Date / Time aspirin Allergy See Verified 09/13/17 14:34 Comments ketorolac [From Toradol] Allergy Anxiety Verified 09/13/17 14:34 Latex, Natural Rubber Allergy Anaphylaxis Verified 09/13/17 14:34 metoclopramide [From Reglan] Allergy Anxiety Verified 09/13/17 14:34 prochlorperazine Allergy Anxiety Verified 09/13/17 14:34 [From Compazine] propoxyphene Allergy Anxiety Verified 09/13/17 14:34 [From Darvocet-N] sumatriptan [From Imitrex] Allergy See Verified 09/13/17 14:34 Comments acetaminophen [From Vicodin] AdvReac Headache Verified 09/13/17 14:34 diphenhydramine AdvReac Anxiety Verified 09/13/17 14:34 [From Benadryl] hydrocodone [From Vicodin] AdvReac Headache Verified 09/13/17 14:34 any blood thinners AdvReac unable to Uncoded 09/13/17 14:34 have due to history All Systems PM: A 10-system review of systems was performed and is negative for pertinent findings except as documented above in the HPI. - Constitutional Constitutional: as per HPI, weakness (Chronic left-sided weakness post CVA), no chills, no fever(s), no night sweats - EENT Eyes: as per HPI, photophobia (Patient's headache is exacerbated by bright lights), no change in vision, no discharge, no pain Ears: as per HPI, no ear discharge, no ear pain, no tinnitus Nose, mouth and throat: as per HPI, sore throat, no dysphagia, no nasal discharge, no neck pain - Cardiovascular Cardiovascular ROS IM: as per HPI, dyspnea, dyspnea on exertion, no chest pain, no diaphoresis, no lightheadedness, no palpitations, no syncope - Respiratory Respiratory: as per HPI, cough, dyspnea, dyspnea on exertion, wheezing, no excessive phlegm production - Gastrointestinal Gastrointestinal: as per HPI, no abdominal pain, no diarrhea, no hematemesis, no hematochezia, no melena, no nausea, no vomiting - Genitourinary Genitourinary: as per HPI, no change in urinary stream, no dysuria, no flank pain, no hematuria - Musculoskeletal Musculoskeletal ROS IM: as per HPI, no numbness, no tingling - Integumentary Integumentary IM: as per HPI, no rash, no unusual bruising - Neurological Neurological ROS: as per HPI, no confusion, no convulsions, no focal weakness, no numbness, no tingling, no tremor(s) - Hematologic/Lymphatic Hematologic/Lymphatic: as per HPI, no easy bruising - Constitutional Vitals: Temp Pulse Resp BP Pulse Ox 97.8 F 84 24 126/81 100 03/16/18 16:45 03/16/18 19:17 03/16/18 17:50 03/16/18 19:17 03/16/18 19:17 Exam: General: A&O X3, conversant, in mild distress Head: atraumatic, normocephalic Eye: PERRL, EOMI, conjuntiva pink, sclera anicteric Neck: Supple, trachea midline; No lymphadenopathy Respiratory: Tachypneic, mild wheezing, shortened inspiratory and expiratory phase Cardiovascular: RRR, +S1, +S2; no murmurs, rubs, gallops Abdomen: Soft, nontender Extremities: warm, radial pulses palpable and symmetrical Neurological: Weakness in the left lower extremity Psychiatric: Normal affect, normal mood Skin: Dry, intact Internal Med - H&P Results - Labs CBC & Chem 7: 03/16/18 16:16 03/16/18 16:16 Labs: Short CBC 03/16/18 Range/Units 16:16 WBC 7.1 (4.3-11.1) K/mcL Hgb 12.0 (11.5-15.4) g/dL Hct 36.9 (35.3-44.9) % Plt Count 305 (140-400) K/mcL Neutrophils # 4.2 (1.6-8.9) K/mcL BMP 03/16/18 16:16 Sodium 138 Potassium 4.1 Chloride 100 Carbon Dioxide 30 H BUN 11 Creatinine 0.77 Glucose 99 Calcium 9.6 Cardiac Enzymes 03/16/18 Range/Units 16:16 Troponin I < 0.03 (< 0.04) ng/mL Urine 03/16/18 Range/Units 18:54 Urine Color Yellow (Yellow) Urine Clarity Clear (Clear) Urine pH 8.0 (5.0-8.0) pH Units Ur Specific [place] 1.013 (1.010-1.025) Urine Protein Negative (Neg-Trace) mg/dL Urine Glucose (UA) Normal (Normal) mg/dL - Impressions ITS Impressions Chest X-Ray 03/16/18 16:16 IMPRESSION: 1. No acute cardiopulmonary disease. D/ / Trent Dorsey MD / Trent Dorsey MD Interpreting Provider: Trent Dorsey MD Chest CTA 03/16/18 17:20 IMPRESSION: Limited evaluation of the segmental and subsegmental pulmonary toe branches. No central pulmonary embolism is detected. Overall, no acute abnormality detected. Cardiac chamber enlargement. D/ / Raúl Weiss MD / Raúl Weiss MD Interpreting Provider: Raúl Weiss MD - Assessment and plan (1) Chest pain Current Visit: No Status: Acute Assessment and plan: - Patient presented with the complaint of chest heaviness for the last 48 hours - Pain radiated down the left arm; associated shortness of breath - Patient has a history of chronic angina; takes Imdur at home - EKG showed T-wave inversions in V2 through V4; unchanged from previous - Laboratory analysis demonstrated a troponin less than 0.03 - [facility] on 09/16/17: angiographically normal coronary arteries; normal LV contractility; LVEF 65% - Chest x-ray 03/16/18: No acute abnormalities Plan: - Continuous cardiac monitoring - Consult cardiology - Echocardiogram - Trend troponin 3 Qualifiers: Qualified Code(s): R07.9 - Chest pain, unspecified (2) Asthma exacerbation Current Visit: Yes Status: Acute Assessment and plan: - Patient has a known history of asthma - Complains of increasing shortness of breath over the last 48 hours - Patient has had several breathing treatments; she reports that they have been largely ineffective - CTA of the chest showed no evidence of PE - Patient currently on O2 via nasal cannula; states that the oxygen is improving her shortness of breath Plan: - O2 via nasal cannula; keep SPO2 greater than 92 - Resume home medications - Robitussin for cough, Chloraseptic spray for sore throat Qualifiers: Asthma severity: moderate Asthma persistence: unspecified Qualified Code(s): J45.901 - Unspecified asthma with (acute) exacerbation (3) Chronic migraine Current Visit: No Status: Chronic Assessment and plan: - Patient complains of a headache located in the frontal and temporal area - Patient reports that her headache became worse when she was given nitroglycerin - Admits to a history of migraines; pain is worse with bright lights - Per chart review, patient has had intracranial aneurysms; one was coiled, the other was clipped - Patient has had follow-up CTAs of the brain, all of which have been stable since 2009 Plan: - Resume home Fioricet - Will order CT of the head without contrast (4) Hypertension Current Visit: No Status: Chronic Assessment and plan: Patient has a known history of hypertension - Currently well-controlled Qualifiers: Qualified Code(s): I10 - Essential (primary) hypertension (5) Anxiety Current Visit: No Status: Chronic Assessment and plan: Resume home hydroxyzine - Time Spent With Patient Total time spent is greater than 50% in coordination of care (as documented) at patient's floor/unit and/or counseling patient: 25 - 35 minutes <Nikhil Slater - Last Filed: 03/17/18 03:21> Date of Encounter: 03/17/18 Time of Encounter: 00:30 - EENT Eyes: no blurry vision, no change in vision - Cardiovascular Cardiovascular ROS IM: chest pain, dyspnea, dyspnea on exertion, no ligh theadedness, no palpitations, no paroxysmal nocturnal dyspnea, no syncope - Respiratory Respiratory: cough, wheezing, no chest congestion, no excessive phlegm pr oduction, no change in phlegm color - Gastrointestinal Gastrointestinal: no diarrhea, no hematemesis, no hematochezia, no melena, no vomiting - Genitourinary Genitourinary: no dysuria, no flank pain, no hematuria - Musculoskeletal Musculoskeletal ROS IM: no arthralgias, no back pain - Integumentary Integumentary IM: no rash, no jaundice - Neurological Neurological ROS: headache(s), no confusion, no convulsions, no disequilibrium, no dizziness, no focal weakness, no frequent falls - Psychiatric Psychiatric: no anxiety, no depression - Endocrine Endocrine IM: no polydipsia, no polyuria - Allergic/Immunologic Allergic/Immunologic: wheezing, no GI upset with certain foods - Constitutional Vitals: Temp Pulse Resp BP Pulse Ox 98.4 F 73 16 117/76 100 03/16/18 21:45 03/16/18 21:45 03/16/18 21:45 03/16/18 21:45 03/16/18 21:45 General appearance: Present: cooperative, A&O X 3, pleasant Exam: + photophobia - Head Head exam: Present: atraumatic, normal inspection - Eye Eye exam: Present: EOMI, PERRL. Absent: scleral icterus - ENT ENT exam: Present: mucous membranes dry, normal oropharynx - Neck Neck exam general surgery: Present: supple. Absent: tenderness, nuchal rigidity, thyromegaly - Respiratory Respiratory exam: Present: CTAB. Absent: rales, rhonchi, wheezes - Cardiovascular Cardiovascular exam: Present: RRR, +S1, +S2 - GI/Abdominal GI/Abdominal exam: Present: soft. Absent: tenderness - Back Exam Back exam: Absent: CVA tenderness (L), CVA tenderness (R) - Neurological Exam Neurological exam: Present: alert, CN II-XII intact, oriented X3, no focal deficits, strengths equal and symetr throughout - Psychiatric Psychiatric exam: Present: normal affect, normal mood - Skin Skin exam: Present: dry, intact, warm Internal Med - H&P Results - Labs CBC & Chem 7: 03/16/18 16:16 03/16/18 16:16 Labs: Short CBC 03/16/18 Range/Units 16:16 WBC 7.1 (4.3-11.1) K/mcL Hgb 12.0 (11.5-15.4) g/dL Hct 36.9 (35.3-44.9) % Plt Count 305 (140-400) K/mcL Neutrophils # 4.2 (1.6-8.9) K/mcL BMP 03/16/18 16:16 Sodium 138 Potassium 4.1 Chloride 100 Carbon Dioxide 30 H BUN 11 Creatinine 0.77 Glucose 99 Calcium 9.6 Cardiac Enzymes 03/16/18 03/16/18 Range/Units 16:16 22:06 Troponin I < 0.03 < 0.03 (< 0.04) ng/mL Urine 03/16/18 Range/Units 18:54 Urine Color Yellow (Yellow) Urine Clarity Clear (Clear) Urine pH 8.0 (5.0-8.0) pH Units Ur Specific [place] 1.013 (1.010-1.025) Urine Protein Negative (Neg-Trace) mg/dL Urine Glucose (UA) Normal (Normal) mg/dL - EKG Data -: EKG Interpreted by Myself - EKG Data Prior EKG available for review: no EKG comments: 03/17/18 03:13 SInus rhythm with anterolateral ischemic changes - Impressions ITS Impressions Chest X-Ray 03/16/18 16:16 IMPRESSION: 1. No acute cardiopulmonary disease. D/ / Trent Dorsey MD / Trent Dorsey MD Interpreting Provider: Trent Dorsey MD Chest CTA 03/16/18 17:20 IMPRESSION: Limited evaluation of the segmental and subsegmental pulmonary toe branches. No central pulmonary embolism is detected. Overall, no acute abnormality detected. Cardiac chamber enlargement. D/ / Raúl Weiss MD / Raúl Weiss MD Interpreting Provider: Raúl Weiss MD Head CT 03/16/18 23:27 IMPRESSION: No acute intracranial abnormality. Right frontal lobe encephalomalacia. D/ / Gerson Griffin MD / Gerson Griffin MD Interpreting Provider: Gerson Griffin MD - Diagnostic Studies Chest x-ray Status: image reviewed by me (negative) - Time Spent With Patient Total time spent is greater than 50% in coordination of care (as documented) at patient's floor/unit and/or counseling patient: - Attending Attestation I discussed the patient DALE past medical history, review of systems, lab data, imaging findings, and exam findings with Dr. Christensen. I then saw and examined patient independently. Prior to my assessment of the patient, I requested Dr. Christensen order a STAT CT of the head given her headache complaint and history of cerebral aneurysms. CT of the head came back negative. Patient currently denies any chest pain. She did have a recent heart catheterization just a few months ago documenting normal coronary arteries. However, she does have some EKG changes now. We will proceed with cardiac workup, echo, and consult cardiology as well. Other than my comments above and noted physical exam findings, I agree with Dr. Christensen's assessment and plan.
[2018-03-16] MEDS ORDERED: *HR* HYDROcodone/Acet 5/325 mg TABLET PO PRN (20:20)
[2018-03-16] MEDS ORDERED: Naloxone 0.4 MG/ML INJ IVP PRN (20:20)
[2018-03-16] MEDS ORDERED: *HR* OxyCODONE Immed Rel 5 MG TABLET PO PRN (20:20)
[2018-03-16] MEDS ORDERED: Acetaminophen 325 MG TABLET PO PRN (20:20)
[2018-03-16] MEDS ORDERED: 0.9 % Sodium Chloride 1,000 ML IVC SCH (20:30)
[2018-03-16] MEDS ORDERED: *HR* Morphine 2 MG/ML SYRINGE IVP PRN (23:08)
[2018-03-16] MEDS ORDERED: Acetaminophen/Butalbital/CaffeineTABLET PO PRN (23:27)
[2018-03-16] MEDS ORDERED: *HR* OxyCODONE/APAP 10/325 TABLET PO PRN (23:27)
[2018-03-16] MEDS ORDERED: ERENUMAB AOOE 70 MG SQ SCH (23:30)
[2018-03-17] MEDS: hydrOXYzine pamoate 25 MG CAPSULE PO SCH ×2 (00:15→07:30)
[2018-03-17] MEDS: GuaiFENesin Liq 200 MG/10 ML UDC PO PRN ×2 (03:48→09:08)
[2018-03-17] MEDS: Albuterol 2.5 MG/3 ML NEBULIZER IH SCH ×2 (04:12→10:33)
[2018-03-17 04:25] LABS: Basophils % 0.2 %; Hematocrit 34.9 % (35.3-44.9); Hemoglobin 11.4 g/dL (11.5-15.4); Immature Granulocytes % 0.7 % (0-4); Lymphocytes # 1.3 K/mcL (0.6-4.6); Lymphocytes % 11.9 %; Mean Corpuscular HGB Conc 32.7 g/dL (31.6-35.5); Mean Corpuscular Hemoglobin 28.7 pg (28.0-33.3); Mean Corpuscular Volume 87.9 fL (83.0-100.0); Mean Platelet Volume 9.6 fL (9.4-12.4); Monocytes # 0.2 K/mcL (0.0-1.3); Monocytes % 1.9 %; Neutrophils # 9.3 K/mcL (1.6-8.9); Platelet Count 301 K/mcL (140-400); Red Blood Count 3.97 M/mcL (3.82-4.97); Red Cell Distribution Width 13.2 % (11.5-14.5); Segmented Neutrophils % 85.3 %
[2018-03-17 04:30] LABS: Prothrombin Time 11.5 Seconds (9.4-12.1)
[2018-03-17 04:34] LABS: Alanine Aminotransferase 8 Units/L (7-52); Albumin 4.3 g/dL (3.5-5.7); Albumin/Globulin Ratio 1.4 (1.1-2.2); Alkaline Phosphatase 104 Units/L (34-104); Aspartate Amino Transferase 16 Units/L (13-39); BUN/Creatinine Ratio 14 (6-26); Bilirubin,Total 0.2 mg/dL (0.3-1.0); Blood Urea Nitrogen 10 mg/dL (6-20); Calcium 9.3 mg/dL (8.6-10.3); Carbon Dioxide 25 mEq/L (23-29); Chloride 105 mEq/L (98-107); Chol/HDL Ratio 4.2 (0-4.9); Cholesterol 238 mg/dL (< 200); Globulin 3.1 g/dL (2.4-3.5); Glucose 155 mg/dL (70-105); HDL Cholesterol 57 mg/dL (40-59); LDL Cholesterol,Calculated 157 mg/dL (0-99); Magnesium 2.2 mg/dL (1.6-2.6); Osmolality,Calculated 288 (280-300); Potassium 4.2 mEq/L (3.5-5.1); Sodium 138 mEq/L (136-145); Total Protein 7.4 g/dL (6.4-8.9); Triglycerides 121 mg/dL (< 150); eGFR For Non-African Americans > 60 (> 60)
[2018-03-17 07:28] VITALS: BP 107/61
[2018-03-17] MEDS ORDERED: Carbidopa/Levodopa 25/100 TABLET PO SCH (09:00)
[2018-03-17] MEDS ORDERED: Gabapentin 300 MG CAPSULE PO SCH (09:00)
[2018-03-17] MEDS ORDERED: Lubiprostone [Amitiza] 24 MCG PO SCH (09:00)
[2018-03-17] MEDS ORDERED: SORBITOL PO SCH (09:00)
[2018-03-17] MEDS ORDERED: amLODIPine 5 MG TABLET PO SCH (09:00)
--- NOTE | 2018-03-17 10:42 | Discharge Summary ---
- NOTES TO OUTPATIENT PROVIDER Notes to Outpatient Provider: f/u with PCP in one week Orders not resulted at time of discharge: Pending orders 03/16/18 20:23 EV echocardiogram Routine 03/17/18 09:02 EKG [ECG 12 lead ECG] [ECG] Stat 03/17/18 10:16 Troponin I Routine Date of Encounter: 03/17/18 Time of Encounter: 10:38 - Discharge Diagnosis (1) Asthma exacerbation Priority: Primary Status: Acute Qualifiers: Asthma severity: moderate Asthma persistence: unspecified Qualified Code(s): J45.901 - Unspecified asthma with (acute) exacerbation (2) Chest pain Priority: Primary Status: Acute Qualifiers: Chest pain type: unspecified Qualified Code(s): R07.9 - Chest pain, unspecified (3) Anxiety Priority: Secondary Status: Chronic (4) Chronic migraine Priority: Secondary Status: Chronic (5) Hypertension Priority: Secondary Status: Chronic Qualifiers: Qualified Code(s): I10 - Essential (primary) hypertension Hospital course: Ms. Villarreal is a 48 year old female with a PMH of CVA, fibromyalgia, HTN, migraine, TIA, and brain aneurysm who presented to [facility] ED on 03/16/18 with a chief compl aint of shortness of breath and chest pain. Patient reports that she has had intermittent chest pain for the last 10 years, and that she has been diagnosed with angina. Also has a known history of non-oxygen dependent asthma. She was admitted in the hospital and placed her on telemetry. Her serial troponin X3 came back is negative. Reviewed her EKG this morning also did not show any acute changes compared to previous EKG from August 2017. She does have mild asthma exacerbation, as well as anxiety. Patient states she is feeling better today. Will discharge her home in a stable condition today with the tapering dose of steroids and anti-anxiety medication. She did have ambulating pulse oxy study done, does not qualify for any oxygen. - Time Spent with Patient Total time spent providing and/or coordinating discharge services: - Discharge Medications Prescriptions: LORazepam [Ativan] 0.5 mg PO BID PRN 5 Days #10 tablet PRN Reason: Anxiety PredniSONE [Deltasone] 40 mg PO DAILY #10 tablet Home Medications: Acetaminophen/Butalbital/Caffe [Fioricet] 1 tab PO Q4HR PRN 07/21/17 [History] Albuterol Neb [Proventil Neb] 2.5 mg IH TID 07/21/17 [History] Albuterol Sulfate [Proair Hfa] 2 puff IH Q4H PRN 07/21/17 [History] Citalopram Hydrobromide [Citalopram HBr] 40 mg PO DAILY 07/21/17 [History] Cyclobenzaprine [Flexeril] 10 mg PO BID 07/21/17 [History] Famotidine [Heartburn Prevention] 20 mg PO HS 07/21/17 [History] Gabapentin [Neurontin] 300 mg PO TID 07/21/17 [History] Promethazine [Phenergan] 25 mg PO DAILY PRN 07/21/17 [History] Trazodone HCl 150 - 300 mg PO HS PRN 07/21/17 [History] amLODIPine [Norvasc] 5 mg PO DAILY 07/21/17 [History] hydrOXYzine HCl [Hydroxyzine HCl] 50 mg PO Q6H 07/21/17 [History] Carbidopa/Levodopa [Carbidopa-Levodopa 25-100 Tab] 1 tab PO DAILY 09/13/17 [History] Diclofenac Potassium [Cambia] 50 mg PO DAILY PRN 09/13/17 [History] Lubiprostone [Amitiza] 24 mcg PO DAILY 09/13/17 [History] OxyCODONE/APAP 10/325 [Percocet 10/325 MG] 1 tab PO Q6HR PRN 09/13/17 [History] Sorbitol Soln [Sorbitol] 30 ml PO DAILY 09/13/17 [History] Erenumab-Aooe [Aimovig Autoinjector] 70 mg SQ QMONTH 03/16/18 [History] LORazepam [Ativan] 0.5 mg PO BID PRN 5 Days #10 tablet 03/17/18 [Rx] PredniSONE [Deltasone] 40 mg PO DAILY #10 tablet 03/17/18 [Rx] Allergies/Adverse Reactions: Allergy/AdvReac Type Severity Reaction Status Date / Time aspirin Allergy See Verified 09/13/17 14:34 Comments ketorolac [From Toradol] Allergy Anxiety Verified 09/13/17 14:34 Latex, Natural Rubber Allergy Anaphylaxis Verified 09/13/17 14:34 metoclopramide [From Reglan] Allergy Anxiety Verified 09/13/17 14:34 prochlorperazine Allergy Anxiety Verified 09/13/17 14:34 [From Compazine] propoxyphene Allergy Anxiety Verified 09/13/17 14:34 [From Darvocet-N] sumatriptan [From Imitrex] Allergy See Verified 09/13/17 14:34 Comments acetaminophen [From Vicodin] AdvReac Headache Verified 09/13/17 14:34 diphenhydramine AdvReac Anxiety Verified 09/13/17 14:34 [From Benadryl] hydrocodone [From Vicodin] AdvReac Headache Verified 09/13/17 14:34 any blood thinners AdvReac unable to Uncoded 09/13/17 14:34 have due to history Date of admission: 03/16/18 19:38 Primary care physician: PCP NONE - Constitutional Vitals: Temp Pulse Resp BP Pulse Ox 98.2 F 68 18 107/61 97 03/17/18 07:27 03/17/18 07:27 03/17/18 07:27 03/17/18 07:27 03/17/18 10:33 General appearance: Present: cooperative, A&O X 3, pleasant Exam: Gen: Alert, awake, Oriented to time,place and person Chest: Diminished breath sounds B/L, No wheezing, No crackles, No rales Heart: S1S2+ RRR No murmurs Abd: Soft, NT, BS +, No organomegaly Ext: No edema, pulses are palpable, No calf tenderness Neuro : Benign findings Skin: No rash. - Patient Status Disposition: Home, Self-Care Condition: Good Overall status at discharge: patient is back to baseline - Discharge Instructions Follow Up With: Chano Aguilar DO [Resident] - Andrzej Bacon DO [Resident] - (Schedule an appointment within 7-10 days.) - Diet and Activity Activity: increase activity as tolerated Diet: low salt diet
[2018-03-17] MEDS ORDERED: Famotidine 20 MG TABLET PO SCH (21:00)
--- NOTE | 2018-03-19 08:38 | Electrocardiograph Report ---
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
--- NOTE | 2018-03-19 09:00 | Electrocardiograph Report ---
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
== END 2018-03-17 12:08 | disposition home or self-care (01) ==
LOC: 3BNU 15:57 → EMEROOARM 15:57 → 3BNU 20:43
PROVIDERS: ADMIT Pediatrics; ATTEND Pediatrics

== ENCOUNTER 2020-10-13 14:42 | Observation (INO) ==
[2020-10-13] MEDS ORDERED: *HR* Nalbuphine 10 MG/ML AMPUL IV STA (16:39)
[2020-10-13] MEDS ORDERED: *HR* Promethazine 25 MG/ML VIAL IM ONE (16:39)
[2020-10-13 17:03] LABS: Basophils % 0.2 %; Eosinophils # 0.1 K/mcL (0.0-0.6); Eosinophils % 1.2 %; Hemoglobin 12.3 g/dL (11.5-15.4); Immature Granulocytes % 0.3 % (0-4); Lymphocytes # 2.6 K/mcL (0.6-4.6); Lymphocytes % 39.8 %; Mean Corpuscular HGB Conc 33.2 g/dL (31.6-35.5); Mean Corpuscular Hemoglobin 30.3 pg (28.0-33.3); Mean Corpuscular Volume 91.1 fL (83.0-100.0); Monocytes # 0.5 K/mcL (0.0-1.3); Monocytes % 7.3 %; Neutrophils # 3.4 K/mcL (1.6-8.9); Platelet Count 269 K/mcL (140-400); Red Blood Count 4.06 M/mcL (3.82-4.97); Segmented Neutrophils % 51.2 %; White Blood Count 6.5 K/mcL (4.3-11.1)
[2020-10-13 20:09] LABS: Alanine Aminotransferase 7 Units/L (7-52); Albumin 4.6 g/dL (3.5-5.7); Albumin/Globulin Ratio 1.8 (1.1-2.2); Alkaline Phosphatase 85 Units/L (34-104); Aspartate Amino Transferase 18 Units/L (13-39); BUN/Creatinine Ratio 16 (6-26); Bilirubin,Direct 0.1 mg/dL (0.0-0.2); Bilirubin,Indirect 0.2 mg/dL (0.0-1.0); Bilirubin,Total 0.3 mg/dL (0.3-1.0); Blood Urea Nitrogen 13 mg/dL (6-20); Calcium 9.7 mg/dL (8.6-10.3); Carbon Dioxide 28 mEq/L (23-29); Chloride 106 mEq/L (98-107); Globulin 2.6 g/dL (2.4-3.5); Glucose 96 mg/dL (70-105); Lipase 8 Units/L (11-82); Osmolality,Calculated 290 (280-300); Potassium 3.7 mEq/L (3.5-5.1); Sodium 140 mEq/L (136-145); Total Protein 7.2 g/dL (6.4-8.9); eGFR For African Americans > 60 (> 60); eGFR For Non-African Americans > 60 (> 60)
[2020-10-13] MEDS ORDERED: *HR* HYDROmorphone (PF) 1 MG/ML SYRINGE IVP ONE (21:04)
[2020-10-13] MEDS ORDERED: Naloxone 0.4 MG/ML INJ IVP PRN (23:26)
[2020-10-14] MEDS ORDERED: traZODone 50 MG TABLET PO PRN (01:30)
[2020-10-14] MEDS: Carbidopa/Levodopa 25/100 TABLET PO SCH ×2 (01:35→09:27)
[2020-10-14 06:20] LABS: Hematocrit 36.5 % (35.3-44.9); Mean Corpuscular HGB Conc 32.9 g/dL (31.6-35.5); Mean Corpuscular Hemoglobin 30.2 pg (28.0-33.3); Mean Corpuscular Volume 91.9 fL (83.0-100.0); Mean Platelet Volume 9.7 fL (9.4-12.4); Platelet Count 254 K/mcL (140-400); Red Blood Count 3.97 M/mcL (3.82-4.97); White Blood Count 5.1 K/mcL (4.3-11.1)
[2020-10-14] MEDS ORDERED: Regadenoson 0.4 MG/5 ML SYRINGE IVP ONE (06:37)
[2020-10-14 06:41] LABS: Magnesium 2.2 mg/dL (1.6-2.6); Phosphorous 4.1 mg/dL (2.7-4.5)
[2020-10-14 06:42] LABS: BUN/Creatinine Ratio 16 (6-26); Blood Urea Nitrogen 14 mg/dL (6-20); Calcium 9.2 mg/dL (8.6-10.3); Carbon Dioxide 27 mEq/L (23-29); Chloride 107 mEq/L (98-107); Glucose 106 mg/dL (70-105); Osmolality,Calculated 291 (280-300); Potassium 3.7 mEq/L (3.5-5.1); Sodium 140 mEq/L (136-145); eGFR For African Americans > 60 (> 60); eGFR For Non-African Americans > 60 (> 60)
[2020-10-14] MEDS ORDERED: Acetaminophen/Butalbital/CaffeineTABLET PO PRN (10:47)
[2020-10-14] MEDS ORDERED: *HR* Nalbuphine 10 MG/ML AMPUL IV ONE (12:21)
[2020-10-14 15:32] VITALS: BP 108/70
== END 2020-10-14 19:05 | disposition home or self-care (01) ==
LOC: EMEROOARM 14:42 → 3NENU 14:42
PROVIDERS: ADMIT Internal Medicine; ATTEND Internal Medicine